=== PATIENT | male | born 1965 | race Caucasian/White ===

== ENCOUNTER 2020-10-30 12:40 | Observation (INO) | payer BC ==
[~2020-10-30] VITALS: Ht 182.9 cm; Wt 129.2 kg
[2020-10-30 17:00] VITALS: BP 178/87
[2020-10-30] MEDS ORDERED: PRAV10TA2 PO (18:11)
--- NOTE | 2020-10-30 18:13 | PDOC1 ---
History and Physical Date of Admission Date of Admission DATE: 10/30/20 TIME: 18:12 Identification/Chief Complaint Chief Complaint Chest pain Source Source: Patient History of Present Illness History of Present Illness Mr Dumont is a 55yo [employer] with PMHx HLD, diet controlled, DDD of lumbar spine, morbid obesity who comes to [facility] emergency department complaint of chest pain. Chest pain has been present for 3 weeks and is associated with exertion even minimal exertion brings on substernal chest pain he describes as a squeezing movement radiates into bilateral shoulders as well as his left neck and also has associated diaphoresis and nausea with dyspnea. It resolves with rest. He notes he can open, flight of stairs or keep up with his on walking whereas he feels like he was able to do this prior to July. He experienced similar symptoms in July 2020 14 days after he had his [employer] COVID-19 vaccine and subsequently after lab removed from [place] back to [facility]. He notes he did exert himself at that time and thought it could have been musculoskeletal as his symptoms improved. His current symptoms started approximately 3 weeks ago when initially he thought they were associated with helping with his multiple move bronchial symptoms have persisted on exertion. He does note into the COVID-19 pandemic warm and he was transitioned from oral [place] p.o. 5 months he has not had primary care follow-up, he notes subsequently care visits in 2018 had a hemoglobin A1c of 5.7 with an LDL cholesterol of 134 and triglycerides of 194 and HDL cholesterol 48. 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 Patient did have a negative treadmill stress test 13 years ago. Initial vital signs temperature 97.9 F, pulse 75 bpm, respiratory rate 18/min, blood pressure 141/73, pulse oximetry 97% on room air Labs with WBC 6.5, Hb 15.4, platelets 297, NA 139, K4.3, BUN 12, CR 0.9, glucose 125, bilirubin 0.5, AST 26 ALT 46, alkaline phosphatase 97, albumin 3.9, troponin 0x2 prior to transfer. EKG appears sinus rhythm rate 72 bpm normal axis and intervals QTc 422. No prior EKG for comparison. Chest radiograph no acute findings Transferred to [facility] for cardiology consultation. Past Medical History Cardiovascular: Hyperlipidemia Past Surgical History Past Surgical History: No pertinent history Family History Family History: Heart Disease (Father - CABG x 5), High Cholestrol, Hypertension Social History Smoke: No ALCOHOL: rare Drugs: None Current Medications Current Medications Active Scripts Active Reported Pravastatin Sodium 10 Mg Tablet 0.5 Tab PO DAILY Allergies Allergies: Coded Allergies: influenza virus vacc trivalent, who (Verified Allergy, Severe, 10/30/20) ROS General: YES: Fatigue, Malaise; No: Chills, Night Sweats, Appetite, Other PSYCHOLOGICAL ROS: YES: Anxiety; No: Behavioral Disorder, Concentration difficultie, Decreased libido, Depression, Disorientation, Hallucinations, Hostility, Irritablity, Memory difficulties, Mood Swings, Obsessive thoughts, Physical abuse, Sexual abuse, Sleep disturbances, Suicidal ideation, Other Eyes: No Blurry vision, No Decreased vision, No Double vision, No Dry eyes, No Excessive tearing, No Eye Pain, No Itchy Eyes, No Loss of vision, No Photophobia, No Scotomata, No Uses contacts, No Uses glasses, No Other HEENT: No: Heacaches, Visual Changes, Hearing change, Nasal congestion, Nasal discharge, Oral lesions, Sinus pain, Sore Throat, Epistaxis, Sneezing, Snoring, Tinnitus, Vertigo, Vocal changes, Other ALLERGY AND IMMUNOLOGY: No: Hives, Insect Bite Sensitivity, Itchy/Watery Eyes, Nasal Congestion, Post Nasal Drip, Seasonal Allergies, Other Hematological and Lymphatic: No: Bleeding Problems, Blood Clots, Blood Transf usions, Brusing, Night Sweats, Pallor, Swollen Lymph Nodes, Other ENDOCRINE: No: Breast Changes, Galactorrhea, Hair Pattern Changes, Hot Flashes, Malaise/lethargy, Mood Swings, Palpitations, Polydipsia/polyuria, Skin Changes, Temperature Intolerance, Unexpected Weight Changes, Other Breast: No New/Changing Breast Lumps, No Nipple changes, No Nipple discharge, No Other Respiratory: YES: Shortness of breath, SOB with excertion; No: Cough, Hemoptysis, Orthopnea, Pleuritic Pain, Sputum Changes, Stridor, Tachypnea, Wheezing, Other Cardiovascular: yes Chest Pain; No Palpitations, No Orthopnea, No Paroxysmal Noc. Dyspnea, No Edema, No Lt Headedness, No Other Gastrointestinal: No Nausea, No Vomiting, No Abdominal Pain, No Diarrhea, No Constipation, No Melena, No Hematochezia, No Other Genitourinary: No Dysuria, No Frequency, No Incontinence, No Hematuria, No Retention, No Discharge, No Urgency, No Pain, No Flank Pain, No Other, No , No , No , No , No , No , No Musculoskeletal: No Gait Disturbance, No Joint Pain, No Joint Stiffness, No Joint Swelling, No Muscle Pain, No Muscular Weakness, No Pain In:, No Swelling In:, No Other Neurological: No Behavorial Changes, No Bowel/Bladder ControlChng, No Confusion, No Dizziness, No Gait Disturbance, No Headaches, No Impaired Coord/balance, No Memory Loss, No Numbness/Tingling, No Seizures, No Speech Problems, No Tremors, No Visual Changes, No Weakness, No Other Skin: No Dry Skin, No Eczema, No Hair Changes, No Lumps, No Mole Changes, No Mottling, No Nail Changes, No Pruritus, No Rash, No Skin Lesion Changes, No Other, No Acne Physical Exam General: Alert, Oriented X3, Cooperative, No acute distress HEENT: Atraumatic, PERRLA, EOMI, Mucous membr. moist/pink Lungs: Clear to auscultation, Normal air movement Heart: S1S2, RRR, no thrills, no rubs, no gallops, no murmurs Abdomen: Normal bowel sounds, Soft, No tenderness, No hepatosplenomegaly, No masses Rectal Exam: not examined Extremities: No clubbing, No cyanosis, No edema, Normal pulses, No tenderness/swelling Skin: No rashes, No breakdown, No significant lesion Neuro: Normal gait, Normal speech, Strength at 5/5 X4 ext, Normal tone, Sensation intact, Cranial nerves 3-12 NL, Reflexes 2+ Psych/Mental Status: Mental status NL, Mood NL Images Images Chest radiograph: No acute lung infiltrate or pleural effusion or pulmonary edema or lung mass or pneumothorax is seen. The heart size, pulmonary vasculature, mediastinum and both halima are unremarkable. IMPRESSION: No acute radiographic abnormality is seen. VTE Prophylaxis Ordered VTE Prophylaxis Devices: Yes VTE Pharmacological Prophylaxi: No Assessment/Plan Assessment/Plan A/P: Chest pain - does sound like anginal equivalent pain. Currently pain free. Will trend troponins, telemetry. NTG prn, ASA, check TSH, A1c, lipids. Consult cardiology. Needs outpatient stress testing. Check CRP, ESR to r/o polymyalgia rheumatica Elevated blood pressure without diagnosis of hypertension - needs ambulatory BP measurements and PCP established Prediabetes - per patient, diagnosed on A1c with 5.7 in 2018. Metformin therapy advised per AACE guidelines HLD - previously on pravastatin, currently diet controlled DDD of lumbar spine - tylenol prn. outpatient aquatic physical therapy referral would be helpful Morbid obesity - counseled on diet and lifestyle modification. FEN - Cardiac diet, NPO after midnight PPX - SCDs FULL CODE Dispo - observation for chest pain with classic exertional anginal symptoms Justifications for Admission Other Justification EVA BRENNER MD Oct 30, 2020 18:13
[2020-10-30] MEDS ORDERED: hydrALAZINE 20 MG/ML VIAL. IVP PRN (18:15)
[2020-10-30] MEDS ORDERED: guaiFENesin DM 200MG/20MG 10 ML SYRUP PO PRN (18:15)
[2020-10-30] MEDS ORDERED: MAGNESIUM HYDROXIDE 2,400 MG/30 ML ORAL.SUSP. PO PRN (18:15)
[2020-10-30] MEDS: LIDO:MAALOX 1:1 20 ML SINGLE DOSE. SWSW ONE ×2 (18:15→19:30)
[2020-10-30] MEDS ORDERED: MORPHINE SULFATE 2 MG/ML INJ. IV PRN (18:15)
[2020-10-30] MEDS ORDERED: ONDANSETRON PF 4 MG/2 ML VIAL. IVP PRN (18:15)
[2020-10-30] MEDS ORDERED: ALBUTEROL SULFATE 2.5 MG/3 ML NEBU. NEB PRN (18:15)
[2020-10-30] MEDS ORDERED: NITROGLYCERIN SUBLINGUAL 0.4 MG BOTTLE OF 25. SL PRN (18:15)
[2020-10-30 19:00] VITALS: BP_SYST 141; BP_SYST 153; BP_DIAS 68; BP_DIAS 76
[2020-10-30] MEDS ORDERED: METOPROLOL IV PUSH 5 MG/5 ML VIAL. IVP PRN (21:15)
[2020-10-30] MEDS: ACETAMINOPHEN 325 MG TABLET. PO PRN (21:34)
[2020-10-30 23:00] VITALS: BP 174/86
[2020-10-31] VITALS (14 sets, daily range): BP systolic 102–168; BP diastolic 48–91
[2020-10-31 05:55] LABS: BASO % 1 % (0-3); EOS # 0.1 x10^3/uL (0.0-0.7); EOS % 2 % (0-3); HEMATOCRIT 43.8 % (39.0-53.0); HEMOGLOBIN 15.3 g/dL (13.0-17.5); LYMPH # 2.1 x10^3/uL (1.0-4.8); LYMPH % 32 % (24-48); MEAN CORPUSCULAR HEMOGLOBIN 31 pg (25-35); MEAN CORPUSCULAR HGB CONC 35 g/dL (31-37); MEAN CORPUSCULAR VOLUME 88 fL (79-100); MONO # 0.6 x10^3/uL (0.0-1.1); MONO % 9 % (0-9); NEUT # 3.8 x10^3/uL (1.8-7.7); NEUT % 57 % (31-73); PLATELET COUNT 288 x10^3/uL (140-400); RED CELL DISTRIBUTION WIDTH 13.9 % (11.5-14.5); WHITE BLOOD COUNT 6.6 x10^3/uL (4.0-11.0)
[2020-10-31 06:13] LABS: ANION GAP 8 (6-14); BLOOD UREA NITROGEN 11 mg/dL (8-26); CALCIUM 9.1 mg/dL (8.5-10.1); CARBON DIOXIDE 27 mmol/L (21-32); CHLORIDE 107 mmol/L (98-107); CHOLESTEROL 226 mg/dL (0-200); CREATININE 1.1 mg/dL (0.7-1.3); GFR 69.2; GLUCOSE 117 mg/dL (70-99); HDLC 39 mg/dL (40-60); LDLC 148 mg/dL (0-100); POTASSIUM 3.9 mmol/L (3.5-5.1); SODIUM 142 mmol/L (136-145); TRIGLYCERIDES 193 mg/dL (0-150); VLDLC 39 mg/dL (0-40)
[2020-10-31 06:21] LABS: CHOLESTEROL/HDL RATIO 5.8
[2020-10-31 06:22] LABS: C-REACTIVE PROTEIN < 0.5 mg/L (0-3.3)
[2020-10-31] MEDS: ASPIRIN 325 MG TABLET PO SCH (08:43)
[2020-10-31] MEDS: ACETAMINOPHEN 325 MG TABLET. PO PRN (08:43)
--- NOTE | 2020-10-31 10:00 | PDOC ---
PROGRESS NOTES Date of Service: DATE: 10/31/20 TIME: 10:00 Chief Complaint Chief Complaint Images Images Chest radiograph: No acute lung infiltrate or pleural effusion or pulmonary edema or lung mass or pneumothorax is seen. The heart size, pulmonary vasculature, mediastinum and both halima are unremarkable. IMPRESSION: No acute radiographic abnormality is seen. VTE Prophylaxis Ordered VTE Prophylaxis Devices: Yes VTE Pharmacological Prophylaxi: No Assessment/Plan Assessment/Plan A/P: Chest pain - does sound like anginal equivalent pain. Currently pain free. Will trend troponins, telemetry. NTG prn, ASA, check TSH, A1c, lipids. Consult cardiology. Needs outpatient stress testing. Check CRP, ESR to r/o polymyalgia rheumatica Elevated blood pressure without diagnosis of hypertension - needs ambulatory BP measurements and PCP established Prediabetes - per patient, diagnosed on A1c with 5.7 in 2018. Metformin therapy advised per AACE guidelines HLD - previously on pravastatin, currently diet controlled DDD of lumbar spine - tylenol prn. outpatient aquatic physical therapy referral would be helpful Morbid obesity - counseled on diet and lifestyle modification. Chest pain: UA features HLP: has not been taking statin Metabolic syndrome Obesity HTN: labile episodes plan LHC, risks and benefits discussed and agreeable to proceed Start IVF statin FEN - Cardiac diet, NPO after midnight PPX - SCDs FULL CODE Dispo - observation for chest pain with classic exertional anginal symptoms 38 min pt exam, chart review, > 50% of time spent on exam, chart review, pt care coordination Justifications for Admission Justifications for Admission Other Justification History of Present Illness History of Present Illness dentification/Chief Complaint Chief Complaint Chest pain Source Source: Patient History of Present Illness History of Present Illness Mr Dumont is a 55yo [employer] with PMHx HLD, diet controlled, DDD of lumbar spine, morbid obesity who comes to [facility] emergency department complaint of chest pain. Chest pain has been present for 3 weeks and is associated with exertion even minimal exertion brings on substernal chest pain he describes as a squeezing movement radiates into bilateral shoulders as well as his left neck and also has associated diaphoresis and nausea with dyspnea. It resolves with rest. He notes he can open, flight of stairs or keep up with his on walking whereas he feels like he was able to do this prior to July. He experienced similar symptoms in July 2020 14 days after he had his [employer] COVID-19 vaccine and subsequently after lab removed from [place] back to [facility]. He notes he did exert himself at that time and thought it could have been musculoskeletal as his symptoms improved. His current symptoms started approximately 3 weeks ago when initially he thought they were associated with helping with his multiple move bronchial symptoms have persisted on exertion. He does note into the COVID-19 pandemic warm and he was transitioned from oral [place] p.o. 5 months he has not had primary care follow-up, he notes subsequently care visits in 2018 had a hemoglobin A1c of 5.7 with an LDL cholesterol of 134 and triglycerides of 194 and HDL cholesterol 48. 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 Patient did have a negative treadmill stress test 13 years ago. Initial vital signs temperature 97.9 F, pulse 75 bpm, respiratory rate 18/min, blood pressure 141/73, pulse oximetry 97% on room air Labs with WBC 6.5, Hb 15.4, platelets 297, NA 139, K4.3, BUN 12, CR 0.9, glucose 125, bilirubin 0.5, AST 26 ALT 46, alkaline phosphatase 97, albumin 3.9, troponin 0x2 prior to transfer. EKG appears sinus rhythm rate 72 bpm normal axis and intervals QTc 422. No prior EKG for comparison. Chest radiograph no acute findings Transferred to [facility] for cardiology consultation. Past Medical History Cardiovascular: Hyperlipidemia Past Surgical History Past Surgical History: No pertinent history Family History Family History: Heart Disease (Father - CABG x 5), High Cholestrol, Hypertension Social History Smoke: No ALCOHOL: rare Drugs: None Current Medications Current Medications Active Scripts Active Reported Pravastatin Sodium 10 Mg Tablet 0.5 Tab PO DAILY Allergies Allergies: Coded Allergies: influenza virus vacc trivalent, who (Verified Allergy, Severe, 10/30/20) ROS General: YES: Fatigue, Malaise; No: Chills, Night Sweats, Appetite, Other PSYCHOLOGICAL ROS: YES: Anxiety; No: Behavioral Disorder, Concentration difficultie, Decreased libido, Depression, Disorientation, Hallucinations, Hostility, Irritablity, Memory difficulties, Mood Swings, Obsessive thoughts, Physical abuse, Sexual abuse, Sleep disturbances, Suicidal ideation, Other Eyes: No Blurry vision, No Decreased vision, No Double vision, No Dry eyes, No Excessive tearing, No Eye Pain, No Itchy Eyes, No Loss of vision, No Photophobia, No Scotomata, No Uses contacts, No Uses glasses, No Other HEENT: No: Heacaches, Visual Changes, Hearing change, Nasal congestion, Nasal discharge, Oral lesions, Sinus pain, Sore Throat, Epistaxis, Sneezing, Snoring, Tinnitus, Vertigo, Vocal changes, Other ALLERGY AND IMMUNOLOGY: No: Hives, Insect Bite Sensitivity, Itchy/Watery Eyes, Nasal Congestion, Post Nasal Drip, Seasonal Allergies, Other Hematological and Lymphatic: No: Bleeding Problems, Blood Clots, Blood Transfusions, Brusing, Night Sweats, Pallor, Swollen Lymph Nodes, Other ENDOCRINE: No: Breast Changes, Galactorrhea, Hair Pattern Changes, Hot Flashes, Malaise/lethargy, Mood Swings, Palpitations, Polydipsia/polyuria, Skin Changes, Temperature Intolerance, Unexpected Weight Changes, Other Breast: No New/Changing Breast Lumps, No Nipple changes, No Nipple discharge, No Other Respiratory: YES: Shortness of breath, SOB with excertion; No: Cough, Hemoptysis, Orthopnea, Pleuritic Pain, Sputum Changes, Stridor, Tachypnea, Wheezing, Other Cardiovascular: yes Chest Pain; No Palpitations, No Orthopnea, No Paroxysmal Noc. Dyspnea, No Edema, No Lt Headedness, No Other Gastrointestinal: No Nausea, No Vomiting, No Abdominal Pain, No Diarrhea, No Constipation, No Melena, No Hematochezia, No Other Genitourinary: No Dysuria, No Frequency, No Incontinence, No Hematuria, No Rete ntion, No Discharge, No Urgency, No Pain, No Flank Pain, No Other, No , No , No , No , No , No , No Musculoskeletal: No Gait Disturbance, No Joint Pain, No Joint Stiffness, No Joint Swelling, No Muscle Pain, No Muscular Weakness, No Pain In:, No Swelling In:, No Other Neurological: No Behavorial Changes, No Bowel/Bladder ControlChng, No Confusion, No Dizziness, No Gait Disturbance, No Headaches, No Impaired Coord/balance, No Memory Loss, No Numbness/Tingling, No Seizures, No Speech Problems, No Tremors, No Visual Changes, No Weakness, No Other Skin: No Dry Skin, No Eczema, No Hair Changes, No Lumps, No Mole Changes, No Mottling, No Nail Changes, No Pruritus, No Rash, No Skin Lesion Changes, No Other, No Acne Vitals Vitals Vital Signs Date Time Temp Pulse Resp B/P (MAP) Pulse Ox O2 Delivery O2 Flow Rate FiO2 10/31/20 06:52 97.8 69 18 142/69 (93) 98 Room Air 97.8 Physical Exam General: Alert, Oriented X3, Cooperative, No acute distress Heart: Regular rate Lungs: Clear Abdomen: Normal bowel sounds, Soft, No tenderness, No hepatosplenomegaly, No masses Extremities: No clubbing, No cyanosis, No edema, Normal pulses, No tenderness/swelling Skin: No rashes, No breakdown, No significant lesion Labs LABS Laboratory Tests Test 10/30/20 19:45 10/31/20 04:30 Troponin I Quantitative < 0.017 ng/mL (0.000-0.055) < 0.017 ng/mL (0.000-0.055) White Blood Count 6.6 x10^3/uL (4.0-11.0) Red Blood Count 5.00 x10^6/uL (4.30-5.70) Hemoglobin 15.3 g/dL (13.0-17.5) Hematocrit 43.8 % (39.0-53.0) Mean Corpuscular Volume 88 fL (79-100) Mean Corpuscular Hemoglobin 31 pg (25-35) Mean Corpuscular Hemoglobin Concent 35 g/dL (31-37) Red Cell Distribution Width 13.9 % (11.5-14.5) Platelet Count 288 x10^3/uL (140-400) Neutrophils (%) (Auto) 57 % (31-73) Lymphocytes (%) (Auto) 32 % (24-48) Monocytes (%) (Auto) 9 % (0-9) Eosinophils (%) (Auto) 2 % (0-3) Basophils (%) (Auto) 1 % (0-3) Neutrophils # (Auto) 3.8 x10^3/uL (1.8-7.7) Lymphocytes # (Auto) 2.1 x10^3/uL (1.0-4.8) Monocytes # (Auto) 0.6 x10^3/uL (0.0-1.1) Eosinophils # (Auto) 0.1 x10^3/uL (0.0-0.7) Basophils # (Auto) 0.0 x10^3/uL (0.0-0.2) Erythrocyte Sedimentation Rate 8 (0-15) Sodium Level 142 mmol/L (136-145) Potassium Level 3.9 mmol/L (3.5-5.1) Chloride Level 107 mmol/L (98-107) Carbon Dioxide Level 27 mmol/L (21-32) Anion Gap 8 (6-14) Blood Urea Nitrogen 11 mg/dL (8-26) Creatinine 1.1 mg/dL (0.7-1.3) Estimated GFR (Cockcroft-Gault) 69.2 Glucose Level 117 mg/dL (70-99) Calcium Level 9.1 mg/dL (8.5-10.1) C-Reactive Protein, Quantitative < 0.5 mg/L (0-3.3) Triglycerides Level 193 mg/dL (0-150) Cholesterol Level 226 mg/dL (0-200) LDL Cholesterol, Calculated 148 mg/dL (0-100) VLDL Cholesterol, Calculated 39 mg/dL (0-40) Non-HDL Cholesterol Calculated 187 mg/dL (0-129) HDL Cholesterol 39 mg/dL (40-60) Cholesterol/HDL Ratio 5.8 Thyroid Stimulating Hormone (TSH) 2.310 uIU/mL (0.358-3.74) Comment Review of Relevant I have reviewed the following items jeanette (where applicable) has been applied. Labs Laboratory Tests Test 10/30/20 19:45 10/31/20 04:30 Troponin I Quantitative < 0.017 ng/mL (0.000-0.055) < 0.017 ng/mL (0.000-0.055) White Blood Count 6.6 x10^3/uL (4.0-11.0) Red Blood Count 5.00 x10^6/uL (4.30-5.70) Hemoglobin 15.3 g/dL (13.0-17.5) Hematocrit 43.8 % (39.0-53.0) Mean Corpuscular Volume 88 fL (79-100) Mean Corpuscular Hemoglobin 31 pg (25-35) Mean Corpuscular Hemoglobin Concent 35 g/dL (31-37) Red Cell Distribution Width 13.9 % (11.5-14.5) Platelet Count 288 x10^3/uL (140-400) Neutrophils (%) (Auto) 57 % (31-73) Lymphocytes (%) (Auto) 32 % (24-48) Monocytes (%) (Auto) 9 % (0-9) Eosinophils (%) (Auto) 2 % (0-3) Basophils (%) (Auto) 1 % (0-3) Neutrophils # (Auto) 3.8 x10^3/uL (1.8-7.7) Lymphocytes # (Auto) 2.1 x10^3/uL (1.0-4.8) Monocytes # (Auto) 0.6 x10^3/uL (0.0-1.1) Eosinophils # (Auto) 0.1 x10^3/uL (0.0-0.7) Basophils # (Auto) 0.0 x10^3/uL (0.0-0.2) Erythrocyte Sedimentation Rate 8 (0-15) Sodium Level 142 mmol/L (136-145) Potassium Level 3.9 mmol/L (3.5-5.1) Chloride Level 107 mmol/L (98-107) Carbon Dioxide Level 27 mmol/L (21-32) Anion Gap 8 (6-14) Blood Urea Nitrogen 11 mg/dL (8-26) Creatinine 1.1 mg/dL (0.7-1.3) Estimated GFR (Cockcroft-Gault) 69.2 Glucose Level 117 mg/dL (70-99) Calcium Level 9.1 mg/dL (8.5-10.1) C-Reactive Protein, Quantitative < 0.5 mg/L (0-3.3) Triglycerides Level 193 mg/dL (0-150) Cholesterol Level 226 mg/dL (0-200) LDL Cholesterol, Calculated 148 mg/dL (0-100) VLDL Cholesterol, Calculated 39 mg/dL (0-40) Non-HDL Cholesterol Calculated 187 mg/dL (0-129) HDL Cholesterol 39 mg/dL (40-60) Cholesterol/HDL Ratio 5.8 Thyroid Stimulating Hormone (TSH) 2.310 uIU/mL (0.358-3.74) Laboratory Tests Test 10/30/20 19:45 10/31/20 04:30 Troponin I Quantitative < 0.017 ng/mL (0.000-0.055) < 0.017 ng/mL (0.000-0.055) White Blood Count 6.6 x10^3/uL (4.0-11.0) Red Blood Count 5.00 x10^6/uL (4.30-5.70) Hemoglobin 15.3 g/dL (13.0-17.5) Hematocrit 43.8 % (39.0-53.0) Mean Corpuscular Volume 88 fL (79-100) Mean Corpuscular Hemoglobin 31 pg (25-35) Mean Corpuscular Hemoglobin Concent 35 g/dL (31-37) Red Cell Distribution Width 13.9 % (11.5-14.5) Platelet Count 288 x10^3/uL (140-400) Neutrophils (%) (Auto) 57 % (31-73) Lymphocytes (%) (Auto) 32 % (24-48) Monocytes (%) (Auto) 9 % (0-9) Eosinophils (%) (Auto) 2 % (0-3) Basophils (%) (Auto) 1 % (0-3) Neutrophils # (Auto) 3.8 x10^3/uL (1.8-7.7) Lymphocytes # (Auto) 2.1 x10^3/uL (1.0-4.8) Monocytes # (Auto) 0.6 x10^3/uL (0.0-1.1) Eosinophils # (Auto) 0.1 x10^3/uL (0.0-0.7) Basophils # (Auto) 0.0 x10^3/uL (0.0-0.2) Erythrocyte Sedimentation Rate 8 (0-15) Sodium Level 142 mmol/L (136-145) Potassium Level 3.9 mmol/L (3.5-5.1) Chloride Level 107 mmol/L (98-107) Carbon Dioxide Level 27 mmol/L (21-32) Anion Gap 8 (6-14) Blood Urea Nitrogen 11 mg/dL (8-26) Creatinine 1.1 mg/dL (0.7-1.3) Estimated GFR (Cockcroft-Gault) 69.2 Glucose Level 117 mg/dL (70-99) Calcium Level 9.1 mg/dL (8.5-10.1) C-Reactive Protein, Quantitative < 0.5 mg/L (0-3.3) Triglycerides Level 193 mg/dL (0-150) Cholesterol Level 226 mg/dL (0-200) LDL Cholesterol, Calculated 148 mg/dL (0-100) VLDL Cholesterol, Calculated 39 mg/dL (0-40) Non-HDL Cholesterol Calculated 187 mg/dL (0-129) HDL Cholesterol 39 mg/dL (40-60) Cholesterol/HDL Ratio 5.8 Thyroid Stimulating Hormone (TSH) 2.310 uIU/mL (0.358-3.74) Medications Current Medications Acetaminophen (Tylenol) 650 mg PRN Q6HRS PRN PO MILD PAIN / TEMP > 100.3'F Last administered on 10/31/20at 08:43; Start 10/30/20 at 18:15 Ondansetron HCl (Zofran) 4 mg PRN Q4HRS PRN IVP NAUSEA/VOMITING; Start 10/30/20 at 18:15 Tramadol HCl (Ultram) 50 mg PRN Q6HRS PRN PO PAIN; Start 10/30/20 at 18:15 Guaifenesin (Robitussin Dm) 10 ml PRN Q6HRS PRN PO COUGH; Start 10/30/20 at 18:15 Nitroglycerin (Nitrostat) 0.4 mg PRN Q5MIN PRN SL CHEST PAIN; Start 10/30/20 at 18:15 Hydralazine HCl (Apresoline Inj) 10 mg PRN Q4HRS PRN IVP ELEVATED BP, SEE COMMENTS; Start 10/30/20 at 18:15 Albuterol Sulfate (Ventolin Neb Soln) 2.5 mg PRN Q4HRS PRN NEB SHORTNESS OF BREATH; Start 10/30/20 at 18:15 Morphine Sulfate (Morphine Sulfate) 2 mg PRN Q3HRS PRN IV PAIN; Start 10/30/20 at 18:15 Magnesium Hydroxide (Milk Of Magnesia) 2,400 mg PRN Q12HR PRN PO CONSTIPATION; Start 10/30/20 at 18:15 Multi-Ingredient Mouthwash/Gargle (Gi Cocktail) 20 ml 1X ONCE SWSW ; Start 10/30/20 at 18:15; Stop 10/30/20 at 18:18; Status DC Metoprolol Tartrate (Lopressor Vial) 5 mg PRN Q6HRS PRN IVP HYPERTENSION; Start 10/30/20 at 21:15 Aspirin (Romelia Aspirin) 325 mg [id number] PO Last administered on 10/31/20at 08:43; Start 10/31/20 at 08:00 Active Scripts Active Reported Pravastatin Sodium 10 Mg Tablet 0.5 Tab PO DAILY Vitals/I & O Vital Sign - Last 24 Hours 10/30/20 10/30/20 10/30/20 10/30/20 17:00 19:00 19:30 23:00 Temp 98.6 98.4 98.5 98.6 98.4 98.5 Pulse 71 71 63 Resp 18 18 16 B/P (MAP) 178/87 (117) 153/76 (101) 174/86 (115) Pulse Ox 98 97 98 O2 Delivery Room Air Room Air Room Air Room Air 10/31/20 10/31/20 03:00 06:52 Temp 98.6 97.8 98.6 97.8 Pulse 66 69 Resp 18 18 B/P (MAP) 102/48 (66) 142/69 (93) Pulse Ox 96 98 O2 Delivery Room Air Room Air Intake and Output 10/30/20 10/30/20 10/31/20 15:00 23:00 07:00 Intake Total 1180 ml 0 ml Balance 1180 ml 0 ml Justicifation of Admission Dx: Justifications for Admission: Justification of Admission Dx: Yes CHF: Hemodynamic Instability Angina: Cresendo Worsening of Sym WANDA DAWSON MD Oct 31, 2020 10:00
[2020-10-31] MEDS: traMADol 50 MG TABLET PO PRN ×2 (10:29→20:38)
--- NOTE | 2020-10-31 10:56 | PDOC2 ---
ANABEL YAN MANAGER WASTEWATER 10/31/20 1056: CARDIAC CONSULT DATE OF CONSULT Date of Consult DATE: 10/31/20 TIME: 10:46 REASON FOR CONSULT Reason for Consult: Chest pain REFERRING PHYSICIAN Referring Physician: Marian SOURCE Source: Chart review, Patient HISTORY OF PRESENT ILLNESS HISTORY OF PRESENT ILLNESS This is a pleasant 55 yo male admitted for complains of chest pain. Reports that this is pressure exacerbated by short ambulation particularly going up the stairs. Positive for TOBIN, fatigue. His pain radiates to both shoulders. No recent falls or injury. No diaphoresis, fever or flu like symptoms. Denies any cardiac disease nor any workup and this is the first time he has been hospitalized. He was vaccinated with [employer] last July for covid-19. He was intially at [facility] and transferred here for further evaluation. No prior hx of VTE. He works in [employer]. PAST MEDICAL HISTORY Past Medical History HLP PAST SURGICAL HISTORY Past Surgical History: Other (vasectomy) FAMILY HISTORY Family History: Coronary Artery Disease (father had CABG) SOCIAL HISTORY Smoke: No ALCOHOL: occassional Drugs: None Lives: with Family CURRENT MEDICATIONS CURRENT MEDICATIONS Current Medications Medications (Trade) Dose Ordered Sig/Joe Route PRN Reason Start Time Stop Time Status Last Admin Dose Admin Acetaminophen (Tylenol) 650 mg PRN Q6HRS PRN PO MILD PAIN / TEMP > 100.3'F 10/30/20 18:15 10/31/20 08:43 Tramadol HCl (Ultram) 50 mg PRN Q6HRS PRN PO PAIN 10/30/20 18:15 10/31/20 10:29 Aspirin (Romelia Aspirin) 325 mg DAILYWBKFT PO 10/31/20 08:00 10/31/20 08:43 ALLERGIES ALLERGIES: Coded Allergies: influenza virus vacc trivalent, who (Verified Allergy, Severe, 10/30/20) ROS Review of System 14 point ROS evaluated with pertinent positives noted per HPI PHYSICAL EXAM General: Alert, Oriented X3, Cooperative, No acute distress HEENT: Atraumatic, Mucous membr. moist/pink Lungs: Clear to auscultation, Normal air movement Heart: Regular rate (SR), Normal S1, Normal S2, No murmurs Abdomen: Soft, No tenderness Extremities: No cyanosis, No edema Skin: No breakdown, No significant lesion Neuro: Normal speech, Sensation intact Psych/Mental Status: Mental status NL, Mood NL MUSCULOSKELETAL: Osteoarthritic changes both hands VITALS/I&O VITALS/I&O: Vital Signs Date Time Temp Pulse Resp B/P (MAP) Pulse Ox O2 Delivery O2 Flow Rate FiO2 10/31/20 06:52 97.8 69 18 142/69 (93) 98 Room Air 97.8 I & O 10/30/20 10/30/20 10/31/20 15:00 23:00 07:00 Intake Total 1180 ml 0 ml Balance 1180 ml 0 ml LABS Lab: Laboratory Tests Test 10/30/20 19:45 10/31/20 04:30 Troponin I Quantitative < 0.017 ng/mL (0.000-0.055) < 0.017 ng/mL (0.000-0.055) White Blood Count 6.6 x10^3/uL (4.0-11.0) Red Blood Count 5.00 x10^6/uL (4.30-5.70) Hemoglobin 15.3 g/dL (13.0-17.5) Hematocrit 43.8 % (39.0-53.0) Mean Corpuscular Volume 88 fL (79-100) Mean Corpuscular Hemoglobin 31 pg (25-35) Mean Corpuscular Hemoglobin Concent 35 g/dL (31-37) Red Cell Distribution Width 13.9 % (11.5-14.5) Platelet Count 288 x10^3/uL (140-400) Neutrophils (%) (Auto) 57 % (31-73) Lymphocytes (%) (Auto) 32 % (24-48) Monocytes (%) (Auto) 9 % (0-9) Eosinophils (%) (Auto) 2 % (0-3) Basophils (%) (Auto) 1 % (0-3) Neutrophils # (Auto) 3.8 x10^3/uL (1.8-7.7) Lymphocytes # (Auto) 2.1 x10^3/uL (1.0-4.8) Monocytes # (Auto) 0.6 x10^3/uL (0.0-1.1) Eosinophils # (Auto) 0.1 x10^3/uL (0.0-0.7) Basophils # (Auto) 0.0 x10^3/uL (0.0-0.2) Erythrocyte Sedimentation Rate 8 (0-15) Sodium Level 142 mmol/L (136-145) Potassium Level 3.9 mmol/L (3.5-5.1) Chloride Level 107 mmol/L (98-107) Carbon Dioxide Level 27 mmol/L (21-32) Anion Gap 8 (6-14) Blood Urea Nitrogen 11 mg/dL (8-26) Creatinine 1.1 mg/dL (0.7-1.3) Estimated GFR (Cockcroft-Gault) 69.2 Glucose Level 117 mg/dL (70-99) H Calcium Level 9.1 mg/dL (8.5-10.1) C-Reactive Protein, Quantitative < 0.5 mg/L (0-3.3) Triglycerides Level 193 mg/dL (0-150) H Cholesterol Level 226 mg/dL (0-200) H LDL Cholesterol, Calculated 148 mg/dL (0-100) H VLDL Cholesterol, Calculated 39 mg/dL (0-40) Non-HDL Cholesterol Calculated 187 mg/dL (0-129) H HDL Cholesterol 39 mg/dL (40-60) L Cholesterol/HDL Ratio 5.8 Thyroid Stimulating Hormone (TSH) 2.310 uIU/mL (0.358-3.74) Laboratory Tests 10/31/20 04:30 Laboratory Tests 10/31/20 04:30 ASSESSMENT/PLAN ASSESSMENT/PLAN 1. Chest pain: UA features 2. HLP: has not been taking statin 3. Metabolic syndrome 4. Obesity 5. HTN: labile episodes Recommendations 1. LHC, risks and benefits discussed and agreeable to proceed 2. Start IVF 3. Start on statin 4. A1C, TTE HEMANT CUMMINS MD 10/31/20 1219: CARDIAC CONSULT ASSESSMENT/PLAN ASSESSMENT/PLAN The patient was seen and interviewed as well as examined at the bedside. The chart was reviewed. The case was discussed. Agree with the plan of care as outlined by OPHTHALMIC MEDICAL ASSISTANT. ANABEL YAN APRN Oct 31, 2020 10:56 HEMANT CUMMINS MD Oct 31, 2020 12:19
[2020-10-31] MEDS ORDERED: LABETALOL 20 MG/4 ML DISP.SYRIN. IVP PRN (11:00)
[2020-10-31] MEDS ORDERED: IV NORMAL SALINE 1000ML BAG 1,000 ML IV ONE (11:00)
--- NOTE | 2020-10-31 11:37 | NUR ---
SS following for discharge planning. SS reviewed pt chart and discussed with pt RN. Pt is from home with spouse and is currently on room air. Cardiology following. Pt having left heart cath today. SS will continue to follow for discharge planning.
--- NOTE | 2020-10-31 12:18 | PDOC ---
MODERATE SEDATION ASSESSMENT RISKS/ALTERNATIVES Risks/Alternatives Risks and alternatives of this type of sedation and procedure discussed with: RISK/ALTERNATIVES: Patient H & P ON CHART H & P H & P on chart and reviewed for co-morbid conditions and appropriate labs. H&P ON CHART: Yes STATUS PREG STATUS ASSESSED: N/A MEDS/ALLERGIES REVIEWED Meds/Allergies Reviewed Medications and Allergies including time and route of recently administered narcotics and sedatives. MEDS/ALLERGIES REVIEWED: Yes ASA RATING ASA RATING: II AIRWAY ASSESSMENT Airway Assessment Airway patency, oral function limitations, presence of caps, crowns, dentures, partials, and ability to extend neck assessed. AIRWAY ASSESSMENT: Yes MALLAMPATI SCORE MALLAMPATI SCORE: II PRE-SEDATION ASSESSMENT PRE-SEDATION ASSESSMENT: Yes HEMANT CUMMINS MD Oct 31, 2020 12:18
[2020-10-31] MEDS ORDERED: PERFLUTREN PROTEIN-A MICROSPHR 0.22 MG/ML 3 ML VIAL. IV ONE ×2 (12:27→12:45)
[2020-10-31] MEDS ORDERED: LIDOCAINE 1% PF 2 ML VIAL. ONE (12:43)
[2020-10-31] MEDS ORDERED: IODIXANOL 320 MG/ML 100 ML VIAL. ONE ×2 (12:43→13:43)
[2020-10-31] MEDS ORDERED: IODIXANOL 320 MG/ML 100 ML VIAL. IART ONE (12:45)
[2020-10-31] MEDS ORDERED: VERAPAMIL 5 MG/2 ML VIAL. IART ONE (12:45)
[2020-10-31] MEDS ORDERED: LIDOCAINE 1% PF 2 ML VIAL. INJ ONE (12:45)
[2020-10-31] MEDS ORDERED: fentaNYL PF VIAL 100 MCG/2 ML VIAL IV ONE (12:45)
[2020-10-31] MEDS ORDERED: MIDAZOLAM HCL/PF 2 MG/2 ML VIAL. IV ONE (12:45)
[2020-10-31] MEDS ORDERED: HEPARIN for IV BOLUS 10,000 UNIT/10 ML VIAL. IART ONE (12:45)
[2020-10-31] MEDS ORDERED: NITROGLYCERIN 200 MCG/2 ML SYRINGE FOR CATH/VASC LAB. IART ONE (12:45)
[2020-10-31] MEDS ORDERED: TIROFIBAN 5MG -0.9% NS 100 ML IV ONE ×2 (13:25→13:48)
[2020-10-31] MEDS: TIROFIBAN 5MG -0.9% NS 100 ML IV PRN ×3 (13:28→22:39)
[2020-10-31] MEDS ORDERED: PRASUGREL 10 MG TABLET. ONE (13:45)
[2020-10-31] MEDS ORDERED: PRASUGREL 10 MG TABLET. PO ONE (14:00)
[2020-10-31] MEDS ORDERED: HEPARIN for IV BOLUS 10,000 UNIT/10 ML VIAL. IV ONE (14:00)
--- NOTE | 2020-10-31 15:27 | CARD ---
MR#: [id number] Date of Study: 10/31/2020 Ordering Physician: HEMANT CUMMINS, Referring Physician: HEMANT CUMMINS, Tech: RT Lizandro(R) APPROVED REPORT Technologist: RT Lizandro(R) Nurse: Floridalma Cannon RN Procedure(s) performed: FLOURO TIME: 6.5 MINUTES DOSE: 34.73 Gycm2 CONTRAST: 201CC'S VISI MODERATE SEDATION: 62 MINUTES C, Coronary angiography, PCI of the LAD, IVUS HISTORY : The patient is a 55 year-old male with a history of . INDICATION The indication(s) include : unstable angina . CSHA Clinical Frailty Scale CS Clinical Frailty Scale: Managing Well Heart Failure Heart Failure: No PROCEDURE NARRATIVE Clinical information: 55-year-old male presented to the hospital in the setting of worsening angina. After discussion of r isks and benefits he was taken to the catheterization laboratory for further evaluation. Procedure details: The right wrist was prepped and draped in usual sterile fashion. Under 1% lidocaine local anesthesia a 6 Estonian sheath was placed in the right radial artery. Diagnostic angiography was then performed with a 6 Estonian TIG catheter and a 6 Estonian JL 3.5 catheter. Left ventricular end-diastolic pressure was obtained with a 6 Estonian TIG catheter and a pullback was performed. Findings: Aorta 150/80 LVEDP 9 mmHg No LV to aortic pullback gradient Coronary angiography: Left main is a large-caliber vessel with normal angiographic appearance LAD is a large-caliber vessel with a long diffuse proximal to mid 90% stenosis D1 is a small caliber vessel with mild luminal irregularities up to 30% Left circumflex is a large-caliber vessel with mild luminal irregularities OM1 is a moderate caliber vessel with a proximal 30% stenosis RCA is a moderate to large caliber vessel with a mid 40 to 50% stenosis Interventional technique: Heparin and tirofiban were used for anticoagulation. Through a 6 Estonian EBU 3.5 guide catheter a Pro water wire was used to traverse the LAD stenosis. Next balloon angioplasty was performed with 3.0 x 15 mm balloon and a 3.0 x 30 mm balloon. The lesion was then stented with a 3.5 x 32 mm Promus drug- eluting stent. The intravascular ultrasound catheter was then used to evaluate stent apposition. Th e stent was appropriately sized distally but malposed more proximally and therefore this was postdila emmanuel with a 4 mm noncompliant balloon with excellent stent expansion and PRISCILLA-3 flow in the vessel. T here were no guide or wire related complications. At case completion all catheters and sheaths were removed and hemostasis was achieved with a Terumo radial band inflated to 11 mL. The patient receive d 60 mg of prasugrel at case completion. No acute complications PRISCILLA Flow PRISCILLA Flow (Pre-Intervention): PRISCILLA-3 PRISCILLA Flow (Post-Intervention): PRISCILLA-3 Conclusion 1. Normal left-sided filling pressures 2. Severe one-vessel LAD disease status post PCI with a Promus 3.5 x 32 mm drug-eluting stent postdi lated with a 4 mm noncompliant balloon Recommendations Aspirin 81 mg daily Prasugrel 10 mg daily Cardiac rehabilitation High-dose statin therapy Signed by : Hemant Cummins, Electronically Approved : 10/31/2020 15:26:56
[2020-10-31] MEDS ORDERED: ATROPINE 0.5 MG/5 ML DISP.SYRINGE. IV PRN (15:30)
[2020-10-31] MEDS ORDERED: 0.9 % SODIUM CHLORIDE 10 ML DISP.SYRIN. IV PRN (15:30)
[2020-10-31] MEDS ORDERED: LIDOCAINE 2% 100 MG/5 ML SYRINGE. IV PRN (15:30)
[2020-10-31] MEDS ORDERED: NITROGLYCERIN SUBLINGUAL 0.4 MG BOTTLE OF 25. SL PRN (15:30)
[2020-10-31] MEDS ORDERED: ACETAMINOPHEN 325 MG TABLET. PO PRN (15:30)
[2020-10-31] MEDS ORDERED: fentaNYL PF VIAL 100 MCG/2 ML VIAL IV PRN (15:30)
[2020-10-31] MEDS ORDERED: AMIODARONE 150 MG in IV DEXTROSE 5% 100ML 100 ML IV PRN (15:30)
--- NOTE | 2020-10-31 17:10 | CARD ---
MR#: [id number] Date of Study: 10/31/2020 Ordering Physician: ANABEL YAN, Referring Physician: ANABEL YAN Tech: Karli Parmar [facility] APPROVED REPORT EXAM: Two-dimensional and M-mode echocardiogram with Doppler and color Doppler. Other Information Quality : Technically LimitedHR: 72bpm Rhythm : NSR INDICATION Chest Pain RISK FACTORS Hypertension Obesity 2D DIMENSIONS RVDd2.2 (2.9-3.5cm)Left Atrium(2D)2.8 (1.6-4.0cm) IVSd1.3 (0.7-1.1cm)Aortic Root(2D)3.2 (2.0-3.7cm) LVDd3.5 (3.9-5.9cm)LVOT Diameter2.6 (1.8-2.4cm) PWd1.3 (0.7-1.1cm)LVDs2.2 (2.5-4.0cm) FS (%) 36.7 %SV34.9 ml LVEF(%)67.5 (>50%) Aortic Valve AoV Peak [place].121.2cm/sAoV VTI22.6cm AO Peak GR.5.9mmHgLVOT Peak [place].98.4cm/s AO Mean GR.3mmHgAVA (VMAX)4.23cm2 Mitral Valve MV E Vrypegcs78.3cm/sMV DECEL [id number] MV A Jnbttawg67.3cm/sE/A Ratio1.0 Tricuspid Valve TR P. Ploetdmm223qv/sTR Peak Gr.20mmHg LEFT VENTRICLE The left ventricle is normal size. There is borderline to mild concentric left ventricular hypertroph y. The left ventricular systolic function is normal and the ejection fraction is within normal range. Estimated ejection fraction 60-65% There is normal LV segmental wall motion. Transmitral Doppler fl ow pattern is Grade I-abnormal relaxation pattern. RIGHT VENTRICLE The right ventricle is normal size. There is normal right ventricular wall thickness. The right ventr icular systolic function is normal. ATRIA The left atrium size is normal. The right atrium size is normal. AORTIC VALVE The aortic valve is normal in structure and function. Doppler and Color Flow revealed no significant aortic regurgitation. There is no significant aortic valvular stenosis. MITRAL VALVE The mitral valve is normal in structure and function. There is no evidence of mitral valve prolapse. There is no mitral valve stenosis. Doppler and Color Flow revealed trace mitral valve regurgitation. TRICUSPID VALVE The tricuspid valve is normal in structure and function. Doppler and Color Flow revealed no tricuspid valve regurgitation noted. There is no tricuspid valve stenosis. PULMONIC VALVE The pulmonary valve is normal in structure and function. Doppler and Color Flow revealed no pulmonic valvular regurgitation. GREAT VESSELS The aortic root is normal in size. The ascending aorta is normal in size. Due to poor image quality, the IVC could not be assessed. PERICARDIAL EFFUSION There is no evidence of significant pericardial effusion. Critical Notification Critical Value: No <Conclusion> The left ventricle is normal size. The left ventricular systolic function is normal and the ejection fraction is within normal range. Estimated ejection fraction 60-65% There is normal LV segmental wall motion. There is borderline to mild concentric left ventricular hypertrophy. Doppler and Color Flow revealed no significant aortic regurgitation. There is no significant aortic valvular stenosis. Doppler and Color Flow revealed trace mitral valve regurgitation. Doppler and Color Flow revealed no tricuspid valve regurgitation noted. Signed by : Thomas Deleon MD Electronically Approved : 10/31/2020 17:10:29
[2020-10-31] MEDS ORDERED: ATORVASTATIN CALCIUM 40 MG TABLET. PO SCH (21:00)
[2020-10-31] MEDS ORDERED: ATORVASTATIN CALCIUM 20 MG TABLET PO SCH (21:00)
[2020-11-01 01:25] LABS: HEMOGLOBIN A1C 6.1 % (4.8-5.6)
[2020-11-01 03:00] VITALS: BP 146/74
[2020-11-01 06:33] VITALS: BP 148/73
[2020-11-01] MEDS ORDERED: PRASUGREL 10 MG TABLET. PO SCH (08:00)
[2020-11-01] MEDS ORDERED: ASPIRIN ENTERIC COATED 81 MG TABLET.DR. PO SCH (08:00)
[2020-11-01] MEDS: ASPIRIN 325 MG TABLET PO SCH (08:18)
[2020-11-01 08:42] LABS: CALCIUM 8.8 mg/dL (8.5-10.1); CHOLESTEROL/HDL RATIO 5.1; GFR 77.3; POTASSIUM 4.4 mmol/L (3.5-5.1)
--- NOTE | 2020-11-01 09:05 | PDOC ---
PROGRESS NOTES Date of Service: DATE: 11/01/20 TIME: 09:04 Chief Complaint Chief Complaint Images Images Chest radiograph: No acute lung infiltrate or pleural effusion or pulmonary edema or lung mass or pneumothorax is seen. The heart size, pulmonary vasculature, mediastinum and both halima are unremarkable. IMPRESSION: No acute radiographic abnormality is seen. VTE Prophylaxis Ordered VTE Prophylaxis Devices: Yes VTE Pharmacological Prophylaxi: No DISCHARGE DX Assessment/Plan A/P: Chest pain - does sound like anginal equivalent pain. Currently pain free. Will trend troponins, telemetry. NTG prn, ASA, check TSH, A1c, lipids. Consult car diology. Needs outpatient stress testing. Check CRP, ESR to r/o polymyalgia rheumatica Elevated blood pressure without diagnosis of hypertension - needs ambulatory BP measurements and PCP established Prediabetes - per patient, diagnosed on A1c with 5.7 in 2018. Metformin therapy advised per AACE guidelines HLD - previously on pravastatin, currently diet controlled DDD of lumbar spine - tylenol prn. outpatient aquatic physical therapy referral would be helpful Morbid obesity - counseled on diet and lifestyle modification. Chest pain: UA features HLP: has not been taking statin Metabolic syndrome Obesity HTN: labile episodes plan LHC, risks and benefits discussed and agreeable to proceed Start IVF statin FEN - Cardiac diet, NPO after midnight PPX - SCDs FULL CODE Dispo - observation for chest pain with classic exertional anginal symptoms Aspirin 81 mg daily Prasugrel 10 mg daily Cardiac rehabilitation High-dose statin therapy 38 min pt exam, chart review D/C PLANNING > 50% of time spent on exam, chart review, pt care coordination Justifications for Admission Justifications for Admission Other Justification History of Present Illness History of Present Illness dentification/Chief Complaint Chief Complaint Chest pain Source Source: Patient History of Present Illness History of Present Illness Mr Dumont is a 55yo [employer] with PMHx HLD, diet controlled, DDD of lumbar spine, morbid obesity who comes to [facility] emergency department complaint of chest pain. Chest pain has been present for 3 weeks and is associated with exertion even minimal exertion brings on substernal chest pain he describes as a squeezing movement radiates into bilateral shoulders as well as his left neck and also has associated diaphoresis and nausea with dyspnea. It resolves with rest. He notes he can open, flight of stairs or keep up with his on walking whereas he feels like he was able to do this prior to July. He experienced similar symptoms in July 2020 14 days after he had his [employer] COVID-19 vaccine and subsequently after lab removed from [place] back to [facility]. He notes he did exert himself at that time and thought it could have been musculoskeletal as his symptoms improved. His current symptoms started appr oximately 3 weeks ago when initially he thought they were associated with helping with his multiple move bronchial symptoms have persisted on exertion. He does note into the COVID-19 pandemic warm and he was transitioned from oral [place] p.o. 5 months he has not had primary care follow-up, he notes subsequently care visits in 2018 had a hemoglobin A1c of 5.7 with an LDL cholesterol of 134 and triglycerides of 194 and HDL cholesterol 48. 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 Patient did have a negative treadmill stress test 13 years ago. Initial vital signs temperature 97.9 F, pulse 75 bpm, respiratory rate 18/min, blood pressure 141/73, pulse oximetry 97% on room air Labs with WBC 6.5, Hb 15.4, platelets 297, NA 139, K4.3, BUN 12, CR 0.9, glucose 125, bilirubin 0.5, AST 26 ALT 46, alkaline phosphatase 97, albumin 3.9, troponin 0x2 prior to transfer. EKG appears sinus rhythm rate 72 bpm normal axis and intervals QTc 422. No prior EKG for comparison. Chest radiograph no acute findings Transferred to [facility] for cardiology consultation. Past Medical History Cardiovascular: Hyperlipidemia Past Surgical History Past Surgical History: No pertinent history Family History Family History: Heart Disease (Father - CABG x 5), High Cholestrol, Hypertension Social History Smoke: No ALCOHOL: rare Drugs: None Current Medications Current Medications Active Scripts Active Reported Pravastatin Sodium 10 Mg Tablet 0.5 Tab PO DAILY Allergies Allergies: Coded Allergies: influenza virus vacc trivalent, who (Verified Allergy, Severe, 10/30/20) ROS General: YES: Fatigue, Malaise; No: Chills, Night Sweats, Appetite, Other PSYCHOLOGICAL ROS: YES: Anxiety; No: Behavioral Disorder, Concentration difficultie, Decreased libido, Depression, Disorientation, Hallucinations, Hostility, Irritablity, Memory difficulties, Mood Swings, Obsessive thoughts, Physical abuse, Sexual abuse, Sleep disturbances, Suicidal ideation, Other Eyes: No Blurry vision, No Decreased vision, No Double vision, No Dry eyes, No Excessive tearing, No Eye Pain, No Itchy Eyes, No Loss of vision, No Photophobia, No Scotomata, No Uses contacts, No Uses glasses, No Other HEENT: No: Heacaches, Visual Changes, Hearing change, Nasal congestion, Nasal discharge, Oral lesions, Sinus pain, Sore Throat, Epistaxis, Sneezing, Snoring, Tinnitus, Vertigo, Vocal changes, Other ALLERGY AND IMMUNOLOGY: No: Hives, Insect Bite Sensitivity, Itchy/Watery Eyes, Nasal Congestion, Post Nasal Drip, Seasonal Allergies, Other Hematological and Lymphatic: No: Bleeding Problems, Blood Clots, Blood Transfusions, Brusing, Night Sweats, Pallor, Swollen Lymph Nodes, Other ENDOCRINE: No: Breast Changes, Galactorrhea, Hair Pattern Changes, Hot Flashes, Malaise/lethargy, Mood Swings, Palpitations, Polydipsia/polyuria, Skin Changes, Temperature Intolerance, Unexpected Weight Changes, Other Breast: No New/Changing Breast Lumps, No Nipple changes, No Nipple discharge, No Other Respiratory: YES: Shortness of breath, SOB with excertion; No: Cough, Hemoptysis, Orthopnea, Pleuritic Pain, Sputum Changes, Stridor, Tachypnea, Wheezing, Other Cardiovascular: yes Chest Pain; No Palpitations, No Orthopnea, No Paroxysmal Noc. Dyspnea, No Edema, No Lt Headedness, No Other Gastrointestinal: No Nausea, No Vomiting, No Abdominal Pain, No Diarrhea, No Constipation, No Melena, No Hematochezia, No Other Genitourinary: No Dysuria, No Frequency, No Incontinence, No Hematuria, No Retention, No Discharge, No Urgency, No Pain, No Flank Pain, No Other, No , No , No , No , No , No , No Musculoskeletal: No Gait Disturbance, No Joint Pain, No Joint Stiffness, No Joint Swelling, No Muscle Pain, No Muscular Weakness, No Pain In:, No Swelling In:, No Other Neurological: No Behavorial Changes, No Bowel/Bladder ControlChng, No Confusion, No Dizziness, No Gait Disturbance, No Headaches, No Impaired Coord/balance, No Memory Loss, No Numbness/Tingling, No Seizures, No Speech Problems, No Tremors, No Visual Changes, No Weakness, No Other Skin: No Dry Skin, No Eczema, No Hair Changes, No Lumps, No Mole Changes, No Mottling, No Nail Changes, No Pruritus, No Rash, No Skin Lesion Changes, No Other, No Acne Vitals Vitals Vital Signs Date Time Temp Pulse Resp B/P (MAP) Pulse Ox O2 Delivery O2 Flow Rate FiO2 11/01/20 06:33 97.9 65 16 148/73 (98) 97 Room Air 97.9 10/31/20 20:38 2.0 Physical Exam General: Alert, Oriented X3, Cooperative, No acute distress Heart: Regular rate, Normal S1, Normal S2 Lungs: Clear Abdomen: Normal bowel sounds, Soft, No tenderness Extremities: No cyanosis, No edema Skin: No breakdown, No significant lesion Labs LABS Procedure(s) performed: FLOURO TIME: 6.5 MINUTES DOSE: 34.73 Gycm2 CONTRAST: 201CC'S VISI MODERATE SEDATION: 62 MINUTES [facility], Coronary angiography, PCI of the LAD, IVUS HISTORY : The patient is a 55 year-old male with a history of . INDICATION The indication(s) include : unstable angina . [facility] Clinical Frailty Scale [facility] Clinical Frailty Scale: Managing Well Heart Failure Heart Failure: No PROCEDURE NARRATIVE Clinical information: 55-year-old male presented to the hospital in the setting of worsening angina. After discussion of risks and benefits he was taken to the catheterization laboratory for further evaluation. Procedure details: The right wrist was prepped and draped in usual sterile fashion. Under 1% lidocaine local anesthesia a 6 Austrian sheath was placed in the right radial victorino ry. Diagnostic angiography was then performed with a 6 Austrian TIG catheter and a 6 Austrian JL 3.5 catheter. Left ventricular end-diastolic pressure was obtained with a 6 Austrian TIG catheter and a pullback was performed. Findings: Aorta 150/80 LVEDP 9 mmHg No LV to aortic pullback gradient Coronary angiography: Left main is a large-caliber vessel with normal angiographic appearance LAD is a large-caliber vessel with a long diffuse proximal to mid 90% stenosis D1 is a small caliber vessel with mild luminal irregularities up to 30% Left circumflex is a large-caliber vessel with mild luminal irregularities OM1 is a moderate caliber vessel with a proximal 30% stenosis RCA is a moderate to large caliber vessel with a mid 40 to 50% stenosis Interventional technique: Heparin and tirofiban were used for anticoagulation. Through a 6 Austrian EBU 3.5 guide catheter a [employer]water wire was used to traverse the LAD stenosis. Next balloon angioplasty was performed with 3.0 x 15 mm balloon and a 3.0 x 30 mm balloon. The lesion was then stented with a 3.5 x 32 mm Promus drug-eluting stent. The intravascular ultrasound catheter was then used to evaluate stent apposition. The stent was appropriately sized distally but malposed more proximally and therefore this was postdilated with a 4 mm noncompliant balloon with excellent stent expansion and PRISCILLA-3 flow in the vessel. There were no guide or wire related complications. At case completion all catheters and sheaths were removed and hemostasis was achieved with a Terumo radial band inflated to 11 mL. The patient received 60 mg of prasugrel at case completion. No acute complications PRISCILLA Flow PRISCILLA Flow (Pre-Intervention): PRISCILLA-3 PRISCILLA Flow (Post-Intervention): PRISCILLA-3 Conclusion 1. Normal left-sided filling pressures 2. Severe one-vessel LAD disease status post PCI with a Promus 3.5 x 32 mm drug-eluting stent postdilated with a 4 mm noncompliant balloon Recommendations Aspirin 81 mg daily Prasugrel 10 mg daily Cardiac rehabilitation High-dose statin therapy Signed by : Hemant Cummins, Electronically Approved : 10/31/2020 15:26:56 DICTATED and SIGNED BY: HEMANT CUMMINS MD DATE: 10/31/20 [id number] Laboratory Tests Test 10/31/20 13:43 11/01/20 06:25 Activated Clotting Time 239 sec (92-181) Sodium Level 142 mmol/L (136-145) Potassium Level 4.4 mmol/L (3.5-5.1) Chloride Level 107 mmol/L (98-107) Carbon Dioxide Level 27 mmol/L (21-32) Anion Gap 8 (6-14) Blood Urea Nitrogen 10 mg/dL (8-26) Creatinine 1.0 mg/dL (0.7-1.3) Estimated GFR (Cockcroft-Gault) 77.3 Glucose Level 119 mg/dL (70-99) Calcium Level 8.8 mg/dL (8.5-10.1) Triglycerides Level 119 mg/dL (0-150) Cholesterol Level 194 mg/dL (0-200) LDL Cholesterol, Calculated 132 mg/dL (0-100) VLDL Cholesterol, Calculated 24 mg/dL (0-40) Non-HDL Cholesterol Calculated 156 mg/dL (0-129) HDL Cholesterol 38 mg/dL (40-60) Cholesterol/HDL Ratio 5.1 Comment Review of Relevant I have reviewed the following items jeanette (where applicable) has been applied. Labs Laboratory Tests Test 10/30/20 19:45 10/31/20 04:30 10/31/20 13:43 11/01/20 06:25 Troponin I Quantitative < 0.017 ng/mL (0.000-0.055) < 0.017 ng/mL (0.000-0.055) White Blood Count 6.6 x10^3/uL (4.0-11.0) Red Blood Count 5.00 x10^6/uL (4.30-5.70) Hemoglobin 15.3 g/dL (13.0-17.5) Hematocrit 43.8 % (39.0-53.0) Mean Corpuscular Volume 88 fL (79-100) Mean Corpuscular Hemoglobin 31 pg (25-35) Mean Corpuscular Hemoglobin Concent 35 g/dL (31-37) Red Cell Distribution Width 13.9 % (11.5-14.5) Platelet Count 288 x10^3/uL (140-400) Neutrophils (%) (Auto) 57 % (31-73) Lymphocytes (%) (Auto) 32 % (24-48) Monocytes (%) (Auto) 9 % (0-9) Eosinophils (%) (Auto) 2 % (0-3) Basophils (%) (Auto) 1 % (0-3) Neutrophils # (Auto) 3.8 x10^3/uL (1.8-7.7) Lymphocytes # (Auto) 2.1 x10^3/uL (1.0-4.8) Monocytes # (Auto) 0.6 x10^3/uL (0.0-1.1) Eosinophils # (Auto) 0.1 x10^3/uL (0.0-0.7) Basophils # (Auto) 0.0 x10^3/uL (0.0-0.2) Erythrocyte Sedimentation Rate 8 (0-15) Sodium Level 142 mmol/L (136-145) 142 mmol/L (136-145) Potassium Level 3.9 mmol/L (3.5-5.1) 4.4 mmol/L (3.5-5.1) Chloride Level 107 mmol/L (98-107) 107 mmol/L (98-107) Carbon Dioxide Level 27 mmol/L (21-32) 27 mmol/L (21-32) Anion Gap 8 (6-14) 8 (6-14) Blood Urea Nitrogen 11 mg/dL (8-26) 10 mg/dL (8-26) Creatinine 1.1 mg/dL (0.7-1.3) 1.0 mg/dL (0.7-1.3) Estimated GFR (Cockcroft-Gault) 69.2 77.3 Glucose Level 117 mg/dL (70-99) 119 mg/dL (70-99) Hemoglobin A1c 6.1 % (4.8-5.6) Calcium Level 9.1 mg/dL (8.5-10.1) 8.8 mg/dL (8.5-10.1) C-Reactive Protein, Quantitative < 0.5 mg/L (0-3.3) Triglycerides Level 193 mg/dL (0-150) 119 mg/dL (0-150) Cholesterol Level 226 mg/dL (0-200) 194 mg/dL (0-200) LDL Cholesterol, Calculated 148 mg/dL (0-100) 132 mg/dL (0-100) VLDL Cholesterol, Calculated 39 mg/dL (0-40) 24 mg/dL (0-40) Non-HDL Cholesterol Calculated 187 mg/dL (0-129) 156 mg/dL (0-129) HDL Cholesterol 39 mg/dL (40-60) 38 mg/dL (40-60) Cholesterol/HDL Ratio 5.8 5.1 Thyroid Stimulating Hormone (TSH) 2.310 uIU/mL (0.358-3.74) Activated Clotting Time 239 sec (92-181) Laboratory Tests Test 10/31/20 13:43 11/01/20 06:25 Activated Clotting Time 239 sec (92-181) Sodium Level 142 mmol/L (136-145) Potassium Level 4.4 mmol/L (3.5-5.1) Chloride Level 107 mmol/L (98-107) Carbon Dioxide Level 27 mmol/L (21-32) Anion Gap 8 (6-14) Blood Urea Nitrogen 10 mg/dL (8-26) Creatinine 1.0 mg/dL (0.7-1.3) Estimated GFR (Cockcroft-Gault) 77.3 Glucose Level 119 mg/dL (70-99) Calcium Level 8.8 mg/dL (8.5-10.1) Triglycerides Level 119 mg/dL (0-150) Cholesterol Level 194 mg/dL (0-200) LDL Cholesterol, Calculated 132 mg/dL (0-100) VLDL Cholesterol, Calculated 24 mg/dL (0-40) Non-HDL Cholesterol Calculated 156 mg/dL (0-129) HDL Cholesterol 38 mg/dL (40-60) Cholesterol/HDL Ratio 5.1 Medications Current Medications Acetaminophen (Tylenol) 650 mg PRN Q6HRS PRN PO MILD PAIN / TEMP > 100.3'F Last administered on 10/31/20at 08:43; Start 10/30/20 at 18:15; Stop 10/31/20 at 15:32; Status DC Ondansetron HCl (Zofran) 4 mg PRN Q4HRS PRN IVP NAUSEA/VOMITING; Start 10/30/20 at 18:15 Tramadol HCl (Ultram) 50 mg PRN Q6HRS PRN PO PAIN Last administered on 10/31/20at 20:38; Start 10/30/20 at 18:15 Guaifenesin (Robitussin Dm) 10 ml PRN Q6HRS PRN PO COUGH; Start 10/30/20 at 18:15 Nitroglycerin (Nitrostat) 0.4 mg PRN Q5MIN PRN SL CHEST PAIN; Start 10/30/20 at 18:15; Stop 10/31/20 at 15:33; Status DC Hydralazine HCl (Apresoline Inj) 10 mg PRN Q4HRS PRN IVP ELEVATED BP, SEE COMMENTS; Start 10/30/20 at 18:15 Albuterol Sulfate (Ventolin Neb Soln) 2.5 mg PRN Q4HRS PRN NEB SHORTNESS OF BREATH; Start 10/30/20 at 18:15 Morphine Sulfate (Morphine Sulfate) 2 mg PRN Q3HRS PRN IV PAIN; Start 10/30/20 at 18:15 Magnesium Hydroxide (Milk Of Magnesia) 2,400 mg PRN Q12HR PRN PO CONSTIPATION; Start 10/30/20 at 18:15 Multi-Ingredient Mouthwash/Gargle (Gi Cocktail) 20 ml 1X ONCE SWSW ; Start 10/30/20 at 18:15; Stop 10/30/20 at 18:18; Status DC Metoprolol Tartrate (Lopressor Vial) 5 mg PRN Q6HRS PRN IVP HYPERTENSION; Start 10/30/20 at 21:15 Aspirin (Romelia Aspirin) 325 mg DAILYWBKFT PO Last administered on 11/01/20at 08:18; Start 10/31/20 at 08:00 Atorvastatin Calcium (Lipitor) 40 mg QHS PO ; Start 10/31/20 at 21:00; Status Cancel Labetalol HCl (Normodyne Iv Push) 20 mg PRN Q2HR PRN IVP HYPERTENSION; Start 10/31/20 at 11:00 Sodium Chloride 1,000 ml @ 100 mls/hr 1X ONCE IV Last administered on 10/31/20at 11:06; Start 10/31/20 at 11:00; Stop 10/31/20 at 20:59; Status DC Perflutren Protein Type A Microsphe (Optison) 0.66 mg STK-MED ONCE IV ; Start 10/31/20 at 12:27; Stop 10/31/20 at 12:27; Status DC Perflutren Protein Type A Microsphe (Optison) 0.66 mg 1X ONCE IV Last administered on 10/31/20at 15:19; Start 10/31/20 at 12:45; Stop 10/31/20 at 12:46; Status DC Lidocaine HCl (Xylocaine-Mpf 1% 2ml Vial) 2 ml STK-MED ONCE .ROUTE ; Start 10/31/20 at 12:43; Stop 10/31/20 at 12:43; Status DC Heparin Sodium/ Sodium Chloride 1,000 ml @ As Directed STK-MED ONCE .ROUTE ; S tart 10/31/20 at 12:43; Stop 10/31/20 at 12:43; Status DC Iodixanol (Visipaque 320) 100 ml STK-MED ONCE .ROUTE ; Start 10/31/20 at 12:43; Stop 10/31/20 at 12:43; Status DC Nitroglycerin (Nitroglycerin) 200 mcg 1X ONCE IART Last administered on 10/31/20at 13:12; Start 10/31/20 at 12:45; Stop 10/31/20 at 13:09; Status DC Verapamil HCl (Verapamil) 2.5 mg 1X ONCE IART Last administered on 10/31/20at 13:12; Start 10/31/20 at 12:45; Stop 10/31/20 at 13:09; Status DC Heparin Sodium (Porcine) (Heparin Sodium) 2,500 unit 1X ONCE IART Last administered on 10/31/20at 13:12; Start 10/31/20 at 12:45; Stop 10/31/20 at 13:09; Status DC Heparin Sodium/ Sodium Chloride (HEPARIN for ARTERIAL LINE FLUSH) 1,000 unit 1X ONCE IART Last administered on 10/31/20at 12:45; Start 10/31/20 at 12:45; Stop 10/31/20 at 13:09; Status DC Heparin Sodium/ Sodium Chloride (HEPARIN for ARTERIAL LINE FLUSH) 1,000 unit 1X ONCE IART Last administered on 10/31/20at 12:45; Start 10/31/20 at 12:45; Stop 10/31/20 at 13:09; Status DC Midazolam HCl (Versed) 2 mg 1X ONCE IV Last administered on 10/31/20at 13:05; Start 10/31/20 at 12:45; Stop 10/31/20 at 13:09; Status DC Fentanyl Citrate (Fentanyl 2ml Vial) 100 mcg 1X ONCE IV Last administered on 10/31/20 13:05; Start 10/31/20 at 12:45; Stop 10/31/20 at 13:09; Status DC Iodixanol (Visipaque 320) 100 ml 1X ONCE IART Last administered on 10/31/20at 13:59; Start 10/31/20 at 12:45; Stop 10/31/20 at 13:09; Status DC Lidocaine HCl (Xylocaine-Mpf 1% 2ml Vial) 2 ml 1X ONCE INJ Last administered on 10/31/20at 13:12; Start 10/31/20 at 12:45; Stop 10/31/20 at 13:09; Status DC Tirofiban/Sodium Chloride 100 ml @ As Directed STK-MED ONCE IV ; Start 10/31/20 at 13:25; Stop 10/31/20 at 13:25; Status DC Heparin Sodium (Porcine) (Heparin Sodium) 4,000 unit 1X ONCE IV Last administered on 10/31/20at 13:30; Start 10/31/20 at 14:00; Stop 10/31/20 at 14:01; Status DC Tirofiban/Sodium Chloride 100 ml @ 0 mls/hr CONT PRN IV PER PROTOCOL Last administered on 10/31/20at 22:39; Start 10/31/20 at 14:00; Stop 11/01/20 at 08:00; Status DC Iodixanol (Visipaque 320) 100 ml STK-MED ONCE .ROUTE ; Start 10/31/20 at 13:43; Stop 10/31/20 at 13:43; Status DC Prasugrel (Effient) 10 mg STK-MED ONCE .ROUTE ; Start 10/31/20 at 13:45; Stop 10/31/20 at 13:46; Status DC Tirofiban/Sodium Chloride 100 ml @ As Directed STK-MED ONCE IV ; Start 10/31/20 at 13:48; Stop 10/31/20 at 13:49; Status DC Prasugrel (Effient) 60 mg 1X ONCE PO Last administered on 10/31/20at 14:12; Start 10/31/20 at 14:00; Stop 10/31/20 at 14:20; Status DC Sodium Chloride (Normal Saline Flush) 3 ml QSHIFT PRN IV AFTER MEDS AND BLOOD DRAWS; Start 10/31/20 at 15:30 Aspirin (Ecotrin) 81 mg DAILYWBKFT PO ; Start 11/01/20 at 08:00 Prasugrel (Effient) 10 mg DAILYWBKFT PO Last administered on 11/01/20at 08:18; Start 11/01/20 at 08:00 Atorvastatin Calcium (Lipitor) 40 mg QHS PO Last administered on 10/31/20at 20:38; Start 10/31/20 at 21:00 Acetaminophen (Tylenol) 650 mg PRN Q6HRS PRN PO MILD PAIN / TEMP > 100.3'F; Start 10/31/20 at 15:30 Fentanyl Citrate (Fentanyl 2ml Vial) 50 mcg PRN Q1HR PRN IV MODERATE OR SEVERE PAIN; Start 10/31/20 at 15:30 Nitroglycerin (Nitrostat) 0.4 mg PRN Q5MIN PRN SL CHEST PAIN; Start 10/31/20 at 15:30 Amiodarone HCl 150 mg/Dextrose 103 ml @ 600 mls/hr 1X PRN PRN IV FOR VENTRICULAR TACHYCARDIA; Start 10/31/20 at 15:30 Lidocaine HCl (Lidocaine HCl 2% Abboject) 100 mg 1X PRN PRN IV FOR VENTRICULAR TACHYCARDIA; Start 10/31/20 at 15:30 Atropine Sulfate (ATROPINE 0.5mg SYRINGE) 0.5 mg PRN 1X PRN IV BRADYCARDIA; Start 10/31/20 at 15:30 Active Scripts Active Reported Pravastatin Sodium 10 Mg Tablet 0.5 Tab PO DAILY Vitals/I & O Vital Sign - Last 24 Hours 10/31/20 10/31/20 10/31/20 10/31/20 11:00 13:05 13:12 14:07 Temp 98.3 98.3 Pulse 65 71 61 Resp 16 18 18 B/P (MAP) 144/87 (106) Pulse Ox 96 99 O2 Delivery Room Air Nasal Cannula O2 Flow Rate 2.0 10/31/20 10/31/20 10/31/20 10/31/20 14:30 14:45 15:00 15:15 Temp 98.2 98.2 Pulse 82 68 65 74 Resp 16 B/P (MAP) 140/86 (104) 140/77 (98) 140/84 (102) 165/91 (115) Pulse Ox 96 96 97 97 O2 Delivery Room Air 10/31/20 10/31/20 10/31/20 10/31/20 15:30 15:45 16:15 16:45 Pulse 74 78 66 74 B/P (MAP) 165/91 (115) 168/76 (106) 167/77 (107) 145/78 (100) Pulse Ox 97 97 97 97 10/31/20 10/31/20 10/31/20 10/31/20 19:00 20:00 20:38 21:08 Temp 98.2 98.2 Pulse 78 Resp 18 18 18 B/P (MAP) 161/68 (99) Pulse Ox 98 98 98 O2 Delivery Room Air Room Air Room Air Room Air O2 Flow Rate 2.0 10/31/20 11/01/20 11/01/20 23:00 03:00 06:33 Temp 98.0 98.3 97.9 98.0 98.3 97.9 Pulse 83 71 65 Resp 18 16 16 B/P (MAP) 141/65 (90) 146/74 (98) 148/73 (98) Pulse Ox 96 96 97 O2 Delivery Room Air Room Air Room Air Intake and Output 10/31/20 10/31/20 11/01/20 15:00 23:00 07:00 Intake Total 180 ml 425 ml 150 ml Balance 180 ml 425 ml 150 ml Justicifation of Admission Dx: Justifications for Admission: Justification of Admission Dx: Yes CHF: Hemodynamic Instability Angina: Cresendo Worsening of Sym WANDA DAWSON MD Nov 01, 2020 09:05
[2020-11-01 11:31] VITALS: BP 140/73
--- NOTE | 2020-11-01 11:43 | NUR ---
SS following up with discharge planning. SS reviewed pt chart and discussed with pt RN. Pt is currently on room air. Pt had heart cath on 10/31/2020. Discharge plan is currently to home when medically ready for discharge. SS will continue to follow for discharge planning.
--- NOTE | 2020-11-01 13:29 | PDOC ---
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 11/01/20 1329: CARDIO Progress Notes Date and Time Date of Service 11/01/20 Time of Evaluation 1320 Subjective Subjective: No Chest Pain, No Palpitations Vitals Vitals Vital Signs Date Time Temp Pulse Resp B/P (MAP) Pulse Ox O2 Delivery O2 Flow Rate FiO2 11/01/20 11:31 97.5 84 20 140/73 (95) 94 Room Air 97.5 10/31/20 20:38 2.0 Weight Weight [ ] Input and Output Intake and Output Intake and Output 11/01/20 07:00 Intake Total 755 ml Balance 755 ml Intake Oral 655 ml IV Total 100 ml # Voids 3 Laboratory Labs Laboratory Tests Test 10/31/20 13:43 11/01/20 06:25 Activated Clotting Time 239 sec (92-181) Sodium Level 142 mmol/L (136-145) Potassium Level 4.4 mmol/L (3.5-5.1) Chloride Level 107 mmol/L (98-107) Carbon Dioxide Level 27 mmol/L (21-32) Anion Gap 8 (6-14) Blood Urea Nitrogen 10 mg/dL (8-26) Creatinine 1.0 mg/dL (0.7-1.3) Estimated GFR (Cockcroft-Gault) 77.3 Glucose Level 119 mg/dL (70-99) Calcium Level 8.8 mg/dL (8.5-10.1) Triglycerides Level 119 mg/dL (0-150) Cholesterol Level 194 mg/dL (0-200) LDL Cholesterol, Calculated 132 mg/dL (0-100) VLDL Cholesterol, Calculated 24 mg/dL (0-40) Non-HDL Cholesterol Calculated 156 mg/dL (0-129) HDL Cholesterol 38 mg/dL (40-60) Cholesterol/HDL Ratio 5.1 Physical Exam HEENT: Neck Supple W Full Motion Chest: Symmetric LUNGS: Clear to Auscultation Heart: S1S2, RRR Abdomen: Soft N/T Extremities: No Edema, Other (right radial arteriotomy site soft and dry. No hematoma present. Neurovascualr status intact ) Neurology: alert, oriented, follow commands Assessment Assessment 1. Chest pain, UA 2. CAD; LHC with severe one-vessel LAD disease. S/p PCI/SHITAL. Echo with preserved LV systolic function 3. Hypertension; cotrolled 4. Hyperlipidemia; statin 4. Obesity Recommendations Secondary prevention including DAPT with ASA/Prasugrel High-dose statin therapy Cardiac rehabilitation Follow up in our office with Dr. Hamilton as scheduled Justicifation of Admission Dx: Justifications for Admission: Justification of Admission Dx: Yes CHF: Hemodynamic Instability Angina: Cresendo Worsening of Sym HEMANT HAMILTON MD 11/02/20 1102: CARDIO Progress Notes Plan Plan Late entry for 11/01/20 Pt. seen and examined. Agree with above PHOTOGRAPHER LITHOGRAPHIC note. DAJA DENSON APRN Nov 01, 2020 13:29 HEMANT HAMILTON MD Nov 02, 2020 11:02
--- NOTE | 2020-11-01 13:43 | PDOC3 ---
Discharge Summary Date of Admission: Oct 30, 2020 Date of Discharge: Nov 01, 2020 Follow-Up: Other (1 WEEK) Admitting Diagnosis comment: History of Present Illness History of Present Illness Mr Dumont is a 55yo [employer] with PMHx HLD, diet controlled, DDD of lumbar spine, morbid obesity who comes to [facility] emergency department complaint of chest pain. Chest pain has been present for 3 weeks and is associated with exertion even minimal exertion brings on substernal chest pain he describes as a squeezing movement radiates into bilateral shoulders as well as his left neck and also has associated diaphoresis and nausea with dyspnea. It resolves with rest. He notes he can open, flight of stairs or keep up with his on walking whereas he feels like he was able to do this prior to July. He experienced similar symptoms in July 2020 14 days after he had his [employer] COVID-19 vaccine and subsequently after lab removed from [place] back to [facility]. He notes he did exert himself at that time and thought it could have been musculoskeletal as his symptoms improved. His current symptoms started approximately 3 weeks ago when initially he thought they were associated with helping with his multiple move bronchial symptoms have persisted on exertion. He does note into the COVID-19 pandemic warm and he was transitioned from oral [place] p.o. 5 months he has not had primary care follow-up, he notes subsequently care visits in 2018 had a hemoglobin A1c of 5.7 with an LDL cholesterol of 134 and triglycerides of 194 and HDL cholesterol 48. 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 Patient did have a negative treadmill stress test 13 years ago. Initial vital signs temperature 97.9 F, pulse 75 bpm, respiratory rate 18/min, blood pressure 141/73, pulse oximetry 97% on room air Labs with WBC 6.5, Hb 15.4, platelets 297, NA 139, K4.3, BUN 12, CR 0.9, glucose 125, bilirubin 0.5, AST 26 ALT 46, alkaline phosphatase 97, albumin 3.9, troponin 0x2 prior to transfer. EKG appears sinus rhythm rate 72 bpm normal axis and intervals QTc 422. No prior EKG for comparison. Chest radiograph no acute findings Transferred to [facility] for cardiology consultation. Past Medical History Cardiovascular: Hyperlipidemia Past Surgical History Past Surgical History: No pertinent history Family History Family History: Heart Disease (Father - CABG x 5), High Cholestrol, Hypertension CONSULTS CARDIOLOGY COMPLICATIONS NONE SEE PCP NEXT WEEK, CARDIOLOGY 2-3 WEEKS D/C DIET HEART HEALTHY D/C MEDS SEE MAR DISCHARGE DX Assessment/Plan Severe one-vessel LAD disease status post PCI with a Promus 3.5 x 32 mm drug- eluting stent postdilated with a 4 mm noncompliant balloon/ ACUTE CORONARY SYNDROME anginal equivalent pain. Currently pain free. Will trend troponins, telemetry. NTG prn, ASA, check TSH, A1c, lipids. Consult cardiology. Needs outpatient stress testing. Check CRP, ESR to r/o polymyalgia rheumatica Elevated blood pressure without diagnosis of hypertension - needs ambulatory BP measurements and PCP established Prediabetes - per patient, diagnosed on A1c with 5.7 in 2018. Metformin therapy advised per AACE guidelines HLD - previously on pravastatin, currently diet controlled DDD of lumbar spine - tylenol prn. outpatient aquatic physical therapy referral would be helpful Morbid obesity - counseled on diet and lifestyle modification. Chest pain: UA features HLP: has not been taking statin Metabolic syndrome Obesity HTN: labile episodes plan LHC, risks and benefits discussed and agreeable to proceed Start IVF statin FEN - Cardiac diet, NPO after midnight PPX - SCDs FULL CODE Dispo - observation for chest pain with classic exertional anginal symptoms Aspirin 81 mg daily Prasugrel 10 mg daily Cardiac rehabilitation High-dose statin therapy NEEDS TO ESTABLISH PCP SATISH 38 min pt exam, chart review D/C PLANNING > 50% of time spent on exam, chart review, pt care coordination Justifications for Admission Justifications for Admission Other Justification History of Present Illness History of Present Illness dentification/Chief Complaint Chief Complaint Chest pain Source Source: Patient History of Present Illness History of Present Illness Mr Dumont is a 55yo [employer] with PMHx HLD, diet controlled, DDD of lumbar spine, morbid obesity who comes to [facility] emergency department complaint of chest pain. Chest pain has been present for 3 weeks and is associated with exertion even minimal exertion brings on substernal chest pain he describes as a squeezing movement radiates into bilateral shoulders as well as his left neck and also has associated diaphoresis and nausea with dyspnea. It resolves with rest. He notes he can open, flight of stairs or keep up with his on walking whereas he feels like he was able to do this prior to July. He experienced similar symptoms in July 2020 14 days after he had his [employer] COVID-19 vaccine and subsequently after lab removed from [place] back to [facility]. He notes he did exert himself at that time and thought it could have been musculoskeletal as his symptoms improved. His current symptoms started approximately 3 weeks ago when initially he thought they were associated with helping with his multiple move bronchial symptoms have persisted on exertion. He does note into the COVID-19 pandemic warm and he was transitioned from oral [place] p.o. 5 months he has not had primary care follow-up, he notes subsequently care visits in 2018 had a hemoglobin A1c of 5.7 with an LDL cholesterol of 134 and triglycerides of 194 and HDL cholesterol 48. 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 Patient did have a negative treadmill stress test 13 years ago. Initial vital signs temperature 97.9 F, pulse 75 bpm, respiratory rate 18/min, blood pressure 141/73, pulse oximetry 97% on room air Labs with WBC 6.5, Hb 15.4, platelets 297, NA 139, K4.3, BUN 12, CR 0.9, glucose 125, bilirubin 0.5, AST 26 ALT 46, alkaline phosphatase 97, albumin 3.9, troponin 0x2 prior to transfer. EKG appears sinus rhythm rate 72 bpm normal axis and intervals QTc 422. No prior EKG for comparison. Chest radiograph no acute findings Transferred to [facility] for cardiology consultation. Past Medical History Cardiovascular: Hyperlipidemia Past Surgical History Past Surgical History: No pertinent history Family History Family History: Heart Disease (Father - CABG x 5), High Cholestrol, Hypertension Social History Smoke: No ALCOHOL: rare Drugs: None Current Medications Current Medications Active Scripts Active Reported Pravastatin Sodium 10 Mg Tablet 0.5 Tab PO DAILY Allergies Allergies: Coded Allergies: influenza virus vacc trivalent, who (Verified Allergy, Severe, 10/30/20) ROS General: YES: Fatigue, Malaise; No: Chills, Night Sweats, Appetite, Other PSYCHOLOGICAL ROS: YES: Anxiety; No: Behavioral Disorder, Concentration difficultie, Decreased libido, Depression, Disorientation, Hallucinations, Hostility, Irritablity, Memory diff iculties, Mood Swings, Obsessive thoughts, Physical abuse, Sexual abuse, Sleep disturbances, Suicidal ideation, Other Eyes: No Blurry vision, No Decreased vision, No Double vision, No Dry eyes, No Excessive tearing, No Eye Pain, No Itchy Eyes, No Loss of vision, No Photophobia, No Scotomata, No Uses contacts, No Uses glasses, No Other HEENT: No: Heacaches, Visual Changes, Hearing change, Nasal congestion, Nasal discharge, Oral lesions, Sinus pain, Sore Throat, Epistaxis, Sneezing, Snoring, Tinnitus, Vertigo, Vocal changes, Other ALLERGY AND IMMUNOLOGY: No: Hives, Insect Bite Sensitivity, Itchy/Watery Eyes, Nasal Congestion, Post Nasal Drip, Seasonal Allergies, Other Hematological and Lymphatic: No: Bleeding Problems, Blood Clots, Blood Transfusions, Brusing, Night Sweats, Pallor, Swollen Lymph Nodes, Other ENDOCRINE: No: Breast Changes, Galactorrhea, Hair Pattern Changes, Hot Flashes, Malaise/lethargy, Mood Swings, Palpitations, Polydipsia/polyuria, Skin Changes, Temperature Intolerance, Unexpected Weight Changes, Other Breast: No New/Changing Breast Lumps, No Nipple changes, No Nipple discharge, No Other Respiratory: YES: Shortness of breath, SOB with excertion; No: Cough, Hemoptysis, Orthopnea, Pleuritic Pain, Sputum Changes, Stridor, Tachypnea, Wheezing, Other Cardiovascular: yes Chest Pain; No Palpitations, No Orthopnea, No Paroxysmal Noc. Dyspnea, No Edema, No Lt Headedness, No Other Gastrointestinal: No Nausea, No Vomiting, No Abdominal Pain, No Diarrhea, No Constipation, No Melena, No Hematochezia, No Other Genitourinary: No Dysuria, No Frequency, No Incontinence, No Hematuria, No Retention, No Discharge, No Urgency, No Pain, No Flank Pain, No Other, No , No , No , No , No , No , No Musculoskeletal: No Gait Disturbance, No Joint Pain, No Joint Stiffness, No Joint Swelling, No Muscle Pain, No Muscular Weakness, No Pain In:, No Swelling In:, No Other Neurological: No Behavorial Changes, No Bowel/Bladder ControlChng, No Confusion, No Dizziness, No Gait Disturbance, No Headaches, No Impaired Coord/balance, No Memory Loss, No Numbness/Tingling, No Seizures, No Speech Problems, No Tremors, No Visual Changes, No Weakness, No Other Skin: No Dry Skin, No Eczema, No Hair Changes, No Lumps, No Mole Changes, No Mottling, No Nail Changes, No Pruritus, No Rash, No Skin Lesion Changes, No Other, No Acne Vitals Vitals Vital Signs Date Time Temp Pulse Resp B/P (MAP) Pulse Ox O2 Delivery O2 Flow Rate FiO2 11/01/20 06:33 97.9 65 16 148/73 (98) 97 Room Air 97.9 10/31/20 20:38 2.0 Physical Exam General: Alert, Oriented X3, Cooperative, No acute distress Heart: Regular rate, Normal S1, Normal S2 Lungs: Clear Abdomen: Normal bowel sounds, Soft, No tenderness Extremities: No cyanosis, No edema Skin: No breakdown, No significant lesion Labs LABS Procedure(s) performed: FLOURO TIME: 6.5 MINUTES DOSE: 34.73 Gycm2 CONTRAST: 201CC'S VISI MODERATE SEDATION: 62 MINUTES [facility], Coronary angiography, PCI of the LAD, IVUS HISTORY : The patient is a 55 year-old male with a history of . INDICATION The indication(s) include : unstable angina . [facility] Clinical Frailty Scale [facility] Clinical Frailty Scale: Managing Well Heart Failure Heart Failure: No PROCEDURE NARRATIVE Clinical information: 55-year-old male presented to the hospital in the setting of worsening angina. After discussion of risks and benefits he was taken to the catheterization laboratory for further evaluation. Procedure details: The right wrist was prepped and draped in usual sterile fashion. Under 1% lidocaine local anesthesia a 6 [place] sheath was placed in the right radial artery. Diagnostic angiography was then performed with a 6 [place] TIG catheter and a 6 [place] JL 3.5 catheter. Left ventricular end-diastolic pressure was obtained with a 6 [place] TIG catheter and a pullback was performed. Findings: Aorta 150/80 LVEDP 9 mmHg No LV to aortic pullback gradient Coronary angiography: Left main is a large-caliber vessel with normal angiographic appearance LAD is a large-caliber vessel with a long diffuse proximal to mid 90% stenosis D1 is a small caliber vessel with mild luminal irregularities up to 30% Left circumflex is a large-caliber vessel with mild luminal irregularities OM1 is a moderate caliber vessel with a proximal 30% stenosis RCA is a moderate to large caliber vessel with a mid 40 to 50% stenosis Interventional technique: Heparin and tirofiban were used for anticoagulation. Through a 6 [place] EBU 3.5 guide catheter a Meijob wire was used to traverse the LAD stenosis. Next balloon angioplasty was performed with 3.0 x 15 mm balloon and a 3.0 x 30 mm balloon. The lesion was then stented with a 3.5 x 32 mm Promus drug-eluting stent. The intravascular ultrasound catheter was then used to evaluate stent apposition. The stent was appropriately sized distally but malposed more proximally and therefore this was postdilated with a 4 mm noncompliant balloon with excellent stent expansion and PRISCILLA-3 flow in the vessel. There were no guide or wire related complications. At case completion all catheters and sheaths were removed and hemostasis was achieved with a Terumo radial band inflated to 11 mL. The patient received 60 mg of prasugrel at case completion. No acute complications PRISCILLA Flow PRISCILLA Flow (Pre-Intervention): PRISCILLA-3 PRISCILLA Flow (Post-Intervention): PRISCILLA-3 Conclusion 1. Normal left-sided filling pressures 2. Severe one-vessel LAD disease status post PCI with a Promus 3.5 x 32 mm drug-eluting stent postdilated with a 4 mm noncompliant balloon Recommendations Aspirin 81 mg daily Prasugrel 10 mg daily Cardiac rehabilitation High-dose statin therapy Signed by : Hemant Hamilton, Electronically Approved : 10/31/2020 15:26:56 DICTATED and SIGNED BY: HEMANT HAMILTON MD DATE: 10/31/20 [id number] 0 Brief Hospital Course Mr. Khoury is a 55 old [sex] who presented with [ACUTE CORONARY SYNDROME ] CONDITION AT DISCHARGE: Improved Discharge Medications Current Medications Acetaminophen (Tylenol) 650 mg PRN Q6HRS PRN PO MILD PAIN / TEMP > 100.3'F Last administered on 10/31/20at 08:43; Start 10/30/20 at 18:15; Stop 10/31/20 at 15:32; Status DC Ondansetron HCl (Zofran) 4 mg PRN Q4HRS PRN IVP NAUSEA/VOMITING; Start 10/30/20 at 18:15 Tramadol HCl (Ultram) 50 mg PRN Q6HRS PRN PO PAIN Last administered on 10/31/20at 20:38; Start 10/30/20 at 18:15 Guaifenesin (Robitussin Dm) 10 ml PRN Q6HRS PRN PO COUGH; Start 10/30/20 at 18:15 Nitroglycerin (Nitrostat) 0.4 mg PRN Q5MIN PRN SL CHEST PAIN; Start 10/30/20 at 18:15; Stop 10/31/20 at 15:33; Status DC Hydralazine HCl (Apresoline Inj) 10 mg PRN Q4HRS PRN IVP ELEVATED BP, SEE COMMENTS; Start 10/30/20 at 18:15 Albuterol Sulfate (Ventolin Neb Soln) 2.5 mg PRN Q4HRS PRN NEB SHORTNESS OF BREATH; Start 10/30/20 at 18:15 Morphine Sulfate (Morphine Sulfate) 2 mg PRN Q3HRS PRN IV PAIN; Start 10/30/20 at 18:15 Magnesium Hydroxide (Milk Of Magnesia) 2,400 mg PRN Q12HR PRN PO CONSTIPATION; Start 10/30/20 at 18:15 Multi-Ingredient Mouthwash/Gargle (Gi Cocktail) 20 ml 1X ONCE SWSW ; Start 10/30/20 at 18:15; Stop 10/30/20 at 18:18; Status DC Metoprolol Tartrate (Lopressor Vial) 5 mg PRN Q6HRS PRN IVP HYPERTENSION; Start 10/30/20 at 21:15 Aspirin (Romelia Aspirin) 325 mg DAILYWBKFT PO Last administered on 11/01/20at 08:18; Start 10/31/20 at 08:00 Atorvastatin Calcium (Lipitor) 40 mg QHS PO ; Start 10/31/20 at 21:00; Status Cancel Labetalol HCl (Normodyne Iv Push) 20 mg PRN Q2HR PRN IVP HYPERTENSION; Start 10/31/20 at 11:00 Sodium Chloride 1,000 ml @ 100 mls/hr 1X ONCE IV Last administered on 10/31/20at 11:06; Start 10/31/20 at 11:00; Stop 10/31/20 at 20:59; Status DC Perflutren Protein Type A Microsphe (Optison) 0.66 mg STK-MED ONCE IV ; Start 10/31/20 at 12:27; Stop 10/31/20 at 12:27; Status DC Perflutren Protein Type A Microsphe (Optison) 0.66 mg 1X ONCE IV Last administered on 10/31/20at 15:19; Start 10/31/20 at 12:45; Stop 10/31/20 at 12:46; Status DC Lidocaine HCl (Xylocaine-Mpf 1% 2ml Vial) 2 ml STK-MED ONCE .ROUTE ; Start 10/31/20 at 12:43; Stop 10/31/20 at 12:43; Status DC Heparin Sodium/ Sodium Chloride 1,000 ml @ As Directed STK-MED ONCE .ROUTE ; Start 10/31/20 at 12:43; Stop 10/31/20 at 12:43; Status DC Iodixanol (Visipaque 320) 100 ml STK-MED ONCE .ROUTE ; Start 10/31/20 at 12:43; Stop 10/31/20 at 12:43; Status DC Nitroglycerin (Nitroglycerin) 200 mcg 1X ONCE IART Last administered on 10/31/20at 13:12; Start 10/31/20 at 12:45; Stop 10/31/20 at 13:09; Status DC Verapamil HCl (Verapamil) 2.5 mg 1X ONCE IART Last administered on 10/31/20at 13:12; Start 10/31/20 at 12:45; Stop 10/31/20 at 13:09; Status DC Heparin Sodium (Porcine) (Heparin Sodium) 2,500 unit 1X ONCE IART Last administered on 10/31/20at 13:12; Start 10/31/20 at 12:45; Stop 10/31/20 at 13:09; Status DC Heparin Sodium/ Sodium Chloride (HEPARIN for ARTERIAL LINE FLUSH) 1,000 unit 1X ONCE IART Last administered on 10/31/20at 12:45; Start 10/31/20 at 12:45; Stop 10/31/20 at 13:09; Status DC Heparin Sodium/ Sodium Chloride (HEPARIN for ARTERIAL LINE FLUSH) 1,000 unit 1X ONCE IART Last administered on 10/31/20at 12:45; Start 10/31/20 at 12:45; Stop 10/31/20 at 13:09; Status DC Midazolam HCl (Versed) 2 mg 1X ONCE IV Last administered on 10/31/20at 13:05; Start 10/31/20 at 12:45; Stop 10/31/20 at 13:09; Status DC Fentanyl Citrate (Fentanyl 2ml Vial) 100 mcg 1X ONCE IV Last administered on 10/31/20at 13:05; Start 10/31/20 at 12:45; Stop 10/31/20 at 13:09; Status DC Iodixanol (Visipaque 320) 100 ml 1X ONCE IART Last administered on 10/31/20at 13:59; Start 10/31/20 at 12:45; Stop 10/31/20 at 13:09; Status DC Lidocaine HCl (Xylocaine-Mpf 1% 2ml Vial) 2 ml 1X ONCE INJ Last administered on 10/31/20at 13:12; Start 10/31/20 at 12:45; Stop 10/31/20 at 13:09; Status DC Tirofiban/Sodium Chloride 100 ml @ As Directed STK-MED ONCE IV ; Start 10/31/20 at 13:25; Stop 10/31/20 at 13:25; Status DC Heparin Sodium (Porcine) (Heparin Sodium) 4,000 unit 1X ONCE IV Last administered on 10/31/20at 13:30; Start 10/31/20 at 14:00; Stop 10/31/20 at 14:01; Status DC Tirofiban/Sodium Chloride 100 ml @ 0 mls/hr CONT PRN IV PER PROTOCOL Last administered on 10/31/20at 22:39; Start 10/31/20 at 14:00; Stop 11/01/20 at 08:00; Status DC Iodixanol (Visipaque 320) 100 ml STK-MED ONCE .ROUTE ; Start 10/31/20 at 13:43; Stop 10/31/20 at 13:43; Status DC Prasugrel (Effient) 10 mg STK-MED ONCE .ROUTE ; Start 10/31/20 at 13:45; Stop 10/31/20 at 13:46; Status DC Tirofiban/Sodium Chloride 100 ml @ As Directed STK-MED ONCE IV ; Start 10/31/20 at 13:48; Stop 10/31/20 at 13:49; Status DC Prasugrel (Effient) 60 mg 1X ONCE PO Last administered on 10/31/20at 14:12; Start 10/31/20 at 14:00; Stop 10/31/20 at 14:20; Status DC Sodium Chloride (Normal Saline Flush) 3 ml QSHIFT PRN IV AFTER MEDS AND BLOOD DRAWS; Start 10/31/20 at 15:30 Aspirin (Ecotrin) 81 mg DAILYWBKFT PO ; Start 11/01/20 at 08:00 Prasugrel (Effient) 10 mg DAILYWBKFT PO Last administered on 11/01/20at 08:18; Start 11/01/20 at 08:00 Atorvastatin Calcium (Lipitor) 40 mg QHS PO Last administered on 10/31/20at 20:38; Start 10/31/20 at 21:00 Acetaminophen (Tylenol) 650 mg PRN Q6HRS PRN PO MILD PAIN / TEMP > 100.3'F; Start 10/31/20 at 15:30 Fentanyl Citrate (Fentanyl 2ml Vial) 50 mcg PRN Q1HR PRN IV MODERATE OR SEVERE PAIN; Start 10/31/20 at 15:30 Nitroglycerin (Nitrostat) 0.4 mg PRN Q5MIN PRN SL CHEST PAIN; Start 10/31/20 at 15:30 Amiodarone HCl 150 mg/Dextrose 103 ml @ 600 mls/hr 1X PRN PRN IV FOR VENTRICULAR TACHYCARDIA; Start 10/31/20 at 15:30 Lidocaine HCl (Lidocaine HCl 2% Abboject) 100 mg 1X PRN PRN IV FOR VENTRICULAR TACHYCARDIA; Start 10/31/20 at 15:30 Atropine Sulfate (ATROPINE 0.5mg SYRINGE) 0.5 mg PRN 1X PRN IV BRADYCARDIA; Start 10/31/20 at 15:30 Metoprolol Succinate (Toprol Xl) 12.5 mg DAILY PO ; Start 11/01/20 at 14:30 Active Scripts Active Reported Pravastatin Sodium 10 Mg Tablet 0.5 Tab PO DAILY Vital Signs Vital Signs Date Time Temp Pulse Resp B/P (MAP) Pulse Ox O2 Delivery O2 Flow Rate FiO2 11/01/20 11:31 97.5 84 20 140/73 (95) 94 Room Air 97.5 10/31/20 20:38 2.0 Labs Laboratory Tests Test 10/30/20 19:45 10/31/20 04:30 10/31/20 13:43 11/01/20 06:25 Troponin I Quantitative < 0.017 ng/mL (0.000-0.055) < 0.017 ng/mL (0.000-0.055) White Blood Count 6.6 x10^3/uL (4.0-11.0) Red Blood Count 5.00 x10^6/uL (4.30-5.70) Hemoglobin 15.3 g/dL (13.0-17.5) Hematocrit 43.8 % (39.0-53.0) Mean Corpuscular Volume 88 fL (79-100) Mean Corpuscular Hemoglobin 31 pg (25-35) Mean Corpuscular Hemoglobin Concent 35 g/dL (31-37) Red Cell Distribution Width 13.9 % (11.5-14.5) Platelet Count 288 x10^3/uL (140-400) Neutrophils (%) (Auto) 57 % (31-73) Lymphocytes (%) (Auto) 32 % (24-48) Monocytes (%) (Auto) 9 % (0-9) Eosinophils (%) (Auto) 2 % (0-3) Basophils (%) (Auto) 1 % (0-3) Neutrophils # (Auto) 3.8 x10^3/uL (1.8-7.7) Lymphocytes # (Auto) 2.1 x10^3/uL (1.0-4.8) Monocytes # (Auto) 0.6 x10^3/uL (0.0-1.1) Eosinophils # (Auto) 0.1 x10^3/uL (0.0-0.7) Basophils # (Auto) 0.0 x10^3/uL (0.0-0.2) Erythrocyte Sedimentation Rate 8 (0-15) Sodium Level 142 mmol/L (136-145) 142 mmol/L (136-145) Potassium Level 3.9 mmol/L (3.5-5.1) 4.4 mmol/L (3.5-5.1) Chloride Level 107 mmol/L (98-107) 107 mmol/L (98-107) Carbon Dioxide Level 27 mmol/L (21-32) 27 mmol/L (21-32) Anion Gap 8 (6-14) 8 (6-14) Blood Urea Nitrogen 11 mg/dL (8-26) 10 mg/dL (8-26) Creatinine 1.1 mg/dL (0.7-1.3) 1.0 mg/dL (0.7-1.3) Estimated GFR (Cockcroft-Gault) 69.2 77.3 Glucose Level 117 mg/dL (70-99) 119 mg/dL (70-99) Hemoglobin A1c 6.1 % (4.8-5.6) Calcium Level 9.1 mg/dL (8.5-10.1) 8.8 mg/dL (8.5-10.1) C-Reactive Protein, Quantitative < 0.5 mg/L (0-3.3) Triglycerides Level 193 mg/dL (0-150) 119 mg/dL (0-150) Cholesterol Level 226 mg/dL (0-200) 194 mg/dL (0-200) LDL Cholesterol, Calculated 148 mg/dL (0-100) 132 mg/dL (0-100) VLDL Cholesterol, Calculated 39 mg/dL (0-40) 24 mg/dL (0-40) Non-HDL Cholesterol Calculated 187 mg/dL (0-129) 156 mg/dL (0-129) HDL Cholesterol 39 mg/dL (40-60) 38 mg/dL (40-60) Cholesterol/HDL Ratio 5.8 5.1 Thyroid Stimulating Hormone (TSH) 2.310 uIU/mL (0.358-3.74) Activated Clotting Time 239 sec (92-181) Laboratory Tests Test 10/31/20 13:43 11/01/20 06:25 Activated Clotting Time 239 sec (92-181) Sodium Level 142 mmol/L (136-145) Potassium Level 4.4 mmol/L (3.5-5.1) Chloride Level 107 mmol/L (98-107) Carbon Dioxide Level 27 mmol/L (21-32) Anion Gap 8 (6-14) Blood Urea Nitrogen 10 mg/dL (8-26) Creatinine 1.0 mg/dL (0.7-1.3) Estimated GFR (Cockcroft-Gault) 77.3 Glucose Level 119 mg/dL (70-99) Calcium Level 8.8 mg/dL (8.5-10.1) Triglycerides Level 119 mg/dL (0-150) Cholesterol Level 194 mg/dL (0-200) LDL Cholesterol, Calculated 132 mg/dL (0-100) VLDL Cholesterol, Calculated 24 mg/dL (0-40) Non-HDL Cholesterol Calculated 156 mg/dL (0-129) HDL Cholesterol 38 mg/dL (40-60) Cholesterol/HDL Ratio 5.1 Allergies Allergies Coded Allergies Type Severity Reaction Last Updated Verified influenza virus vacc trivalent, who Allergy Severe 10/30/20 Yes Disposition/Orders: D/C to Home Justicifation of Admission Dx: Justifications for Admission: Justification of Admission Dx: Yes CHF: Hemodynamic Instability Angina: Cresendo Worsening of Sym WANDA DAWSON MD Nov 01, 2020 13:43
[2020-11-01] MEDS ORDERED: ASPI-886 PO (13:44)
[2020-11-01] MEDS ORDERED: PRAS10TA9 PO (13:44)
[2020-11-01] MEDS ORDERED: METO-239 PO ×2 (13:44→13:45)
[2020-11-01] MEDS ORDERED: ATOR20TA58 PO (13:44)
--- NOTE | 2020-11-01 13:46 | DISCH ---
DISCHARGE INSTRUCTIONS Condition on Discharge Condition on Discharge: Stable Activity After Discharge Activity Instructions for Disc: Activity as tolerated Driving Instructions after Dis: Do not drive today Diet after Discharge Diet after Discharge: Cardiac Liquid Texture: Thin Liquid Checks after Discharge Checks after discharge: Check blood press - daily Contacting the DRDwayne after DC Call your doctor for: If your condition worsens Follow-Up Follow up with: Cardiac Rehab Follow Up With: Dr. Hamilton in 6-8 weeks, Treatment/Equipment after DC Adaptive Equipment Issued: None WANDA DAWSON MD Nov 01, 2020 13:46
[2020-11-01] MEDS ORDERED: METOPROLOL SUCC 24HR ER 25 MG TAB.ER.24H. PO SCH (14:30)
--- NOTE | 2020-11-01 15:41 | NUR ---
Discharge: Teaching verbal and written. Reviewed NE, chest pain, cardiac cath, ECHO, ect. Patient and verbalized understanding. Prescriptions sent to pharmacy by physician, follow-up appointments scheduled. IV removed without complications, catheter tip in-tact. Arm board removed. Patient ambulated off of unit via wheelchair accompanied by CONRAD Almendarez
== END 2020-11-01 15:35 | disposition home or self-care (01) ==
LOC: 6 SOUTH 12:40
PROVIDERS: ADMIT Family Medicine; ATTEND Family Medicine
DX: I25.110 Atherosclerotic heart disease of native coronary artery with unstable angina pectoris (principal); E78.5 Hyperlipidemia, unspecified; E66.01 Morbid (severe) obesity due to excess calories; E88.1 Lipodystrophy, not elsewhere classified; I11.0 Hypertensive heart disease with heart failure; I50.9 Heart failure, unspecified; I24.9 Acute ischemic heart disease, unspecified; E88.81 Metabolic syndrome and other insulin resistance; M51.36 Other intervertebral disc degeneration, lumbar region; Z82.49 Family history of ischemic heart disease and other diseases of the circulatory system; Z98.61 Coronary angioplasty status
CPT/HCPCS: 36415; 80048; 80061; 83036; 84443; 84484; 85025; 85347; 85651; 86140; 92928; 92978; 93458; 96361; 96365; 96366; 99152; 99153; C1725; C1753; C1769; C1874; C1887; C1894; C8929; G0378; J1644; J2250; J3010; J3246; J3490; J7030; Q9956; Q9967; 96375; G0379